=== PATIENT | female | born 1995 | race Caucasian/White ===

== ENCOUNTER 2016-10-23 10:17 | Outpatient (CLI) | payer OTHER ==
[~2016-10-23 10:17] MED LIST: BCPILLS PO
--- NOTE | 2016-10-23 10:31 | Progress Note ---
Progress Note Date of Service Oct 23, 2016. Progress Note Outpatient Note 21 F P1001 at 30 weeks with upper abdominal pain associated with low back pain. No history of labor or any bleeding or leakage of fluid. No urinary symptoms. FHT Cat 1. Has been constipated during . Cervix closed and thick. Will place on monitor and observe for signs of labor.
[2016-10-23] MEDS ORDERED: ACETAMINOPHEN 325 MG TAB PO STA (11:09)
[2016-10-23 11:46] LABS: URINE APPEARANCE CLEAR (CLEAR); URINE BILIRUBIN NEG (NEG); URINE COLOR YELLOW; URINE NITRITE NEG (NEG); URINE PH 7.5 (4.5-7.5); URINE SPECIFIC GRAVITY 1.011 (1.000-1.030); UROBILINOGEN NEG (NEG); ZZUR CULT IF INDIC CLEAN CATCH NO
[2016-10-23 11:47] LABS: MANUAL MICROSCOPIC REQUIRED? NO; REVIEW REQ? NO
--- NOTE | 2016-10-23 12:22 | OB/GYN Progress Note ---
VARIOUS EXCEPTIONALITIES TEACHER Progress Note Date of Service: Oct 23, 2016. Covering for Dr. Whelan Patient is reevaluated She feels well, no more pain No ctxs/ LOF/VB +FM She was upset at work when it started Tylenol one dose helped U/A: negative A: 21 yo at 30.6 wks with musculoskeletal pain, resolved No s/s of PTL FHR reassuring Plan d/c home and f/u in office Instructions were given when to call
== END 2016-10-23 12:50 | disposition home or self-care (01) ==
LOC: C.OPB 10:17 → C.LD 10:18 → C.OPB 12:50
PROVIDERS: ATTEND Obstetrics & Gynecology
DX: O99.89 Other specified diseases and conditions complicating pregnancy, childbirth and the puerperium (principal); M79.1 Myalgia; Z3A.30 30 weeks gestation of pregnancy

== ENCOUNTER 2016-12-11 22:49 | Outpatient (CLI) | payer OTHER ==
[~2016-12-11] VITALS: Ht 152.4 cm; Wt 74.1 kg
[2016-12-11 23:38] VITALS: Ht 152.4 cm; Wt 74.1 kg
--- NOTE | 2016-12-21 11:22 | EDITING REQUIRED CODING QUERY ---
DIAGNOSIS NEEDED To promote full compliance with coding requirements relating to patient care, physician participation is requested in all cases of pecan huller uncertainty. Please assist us with the question(s) below: Coding Question: The patient received care in labor and delivery on 12/11/16 as noted within the record. Please document the diagnosis that is being addressed by the medication/treatment. Provider Response: DIAGNOSIS: labor Thank you for your assistance, Jazmin Pelletier - Digital Marketing Analyst
== END 2016-12-11 23:45 | disposition home or self-care (01) ==
LOC: C.LD 22:49 → C.OPB 22:49
PROVIDERS: ATTEND Obstetrics & Gynecology
DX: O60.03 Preterm labor without delivery, third trimester (principal); Z3A.33 33 weeks gestation of pregnancy

== ENCOUNTER 2016-12-30 09:41 | Inpatient (IN) | payer OTHER ==
[~2016-12-30] VITALS: Ht 152.4 cm; Wt 77.3 kg
[2016-12-30] MEDS ORDERED: PRENTAB26 PO (10:39)
[2016-12-30 10:42] VITALS: Ht 152.4 cm; Wt 77.3 kg
[2016-12-30] MEDS ORDERED: LACTATED RINGER'S 1000ML 1,000 ML IV PRN (11:06)
[2016-12-30] MEDS ORDERED: MISOPROSTOLTAB 50 MCG TAB PO ONE (11:15)
--- NOTE | 2016-12-30 11:24 | HISTORY & PHYSICAL EXAMINATION ---
DATE OF ADMISSION: 12/30/2016 HISTORY OF PRESENT ILLNESS: The patient is a 21-year-old G2, P1, due date 12/26/2016 making her 40 weeks and 4 days gestation. The patient's has been unremarkable. She is here today for induction for post dates. LABS: Blood type B positive, antibody negative, rubella immune, GBS negative. PAST MEDICAL HISTORY: History of asthma. PAST SURGICAL HISTORY: None. ALLERGIES: No known drug allergies. SOCIAL HISTORY: Denies tobacco, drug or alcohol use. POSTDOCTORAL FELLOW HISTORY: The patient delivered a live infant male on 03/12/2014. Infant weighed 7 pounds 15 ounces. This was a vaginal delivery. PHYSICAL EXAMINATION: GENERAL: Well-developed, well-nourished white female in no acute distress. HEART: S1, S2, regular rhythm and rate. LUNGS: Clear to auscultation bilaterally. ABDOMEN: Gravid. heart rate is category 1. Bedside ultrasound shows cephalic presentation. PELVIC EXAMINATION: The patient is 1, 50%, -3 station. ASSESSMENT AND PLAN: A 21-year-old G2, P1 at 40 weeks and 3 days, here for labor induction. An unremarkable course. Bedside ultrasound cephalic presentation. Negative GBS. Plan is to admit patient and start labor induction.
[2016-12-30 11:42] LABS: HEMATOCRIT 34.2 % (37-47); MEAN CELL VOLUME 88.6 fL (80-100); MEAN CORPUSCULAR HEMOGLOBIN 31.1 pg (25-34); MEAN CORPUSCULAR HGB CONC 35.1 g/dl (32-36); MEAN PLATELET VOLUME 9.8 fL (7.4-10.4); PLATELET COUNT 212 K/uL (130-400); RED BLOOD COUNT 3.86 M/uL (4.2-5.4); WHITE BLOOD COUNT 12.95 K/uL (4.8-10.8)
[2016-12-30] MEDS: LACTATED RINGER'S 1000ML 1,000 ML IV SCH ×2 (12:45→20:43)
[2016-12-30] MEDS ORDERED: LACTATED RINGER'S 1000ML 500 ML IV PRN ×2 (16:03→20:30)
[2016-12-30] MEDS ORDERED: OXYTOCIN 30 UNITS/500ML NSS IV PRN (16:15)
[2016-12-30] MEDS ORDERED: BUPIVACAINE 0.25% 30 ML VIAL ONE (19:33)
[2016-12-30] MEDS ORDERED: FENTANYL 2MCG/ML ROPIV 1.25MG/ML 100ML BAG EPI ONE (19:34)
[2016-12-30] MEDS ORDERED: EpHEDrine SULFATE INJ 50 MG/ML AMP ONE (19:34)
[2016-12-30] MEDS ORDERED: FENTANYL CITRATE INJ 50 MCG/1 ML 2 ML VIAL ONE (19:35)
[2016-12-30] MEDS ORDERED: NALBUPHINE HCL INJ 10 MG/ML AMP IV PRN (20:30)
[2016-12-30] MEDS ORDERED: ONDANSETRON INJ 2 MG/ML 2 ML VIAL IV PRN (20:30)
[2016-12-30] MEDS ORDERED: NALOXONE HCL INJ 1 MG in SODIUM CHLORIDE 0.9% 1000ML 1,000 ML IV PRN (20:30)
[2016-12-30] MEDS ORDERED: NALOXONE HCL INJ 0.4 MG/1 ML VIAL/CARP IV PRN (20:30)
[2016-12-30] MEDS ORDERED: DiphenhydrAMINE HCL 50 MG/ML VIAL IV PRN (20:30)
[2016-12-30] MEDS ORDERED: EpHEDrine SULFATE INJ 50 MG/ML AMP IV PRN (20:30)
[2016-12-30] MEDS ORDERED: FENTANYL 2MCG/ML ROPIV 1.25MG/ML 100ML BAG EPI PRN (20:30)
[2016-12-31] VITALS (7 sets, daily range): BP systolic 107–118; BP diastolic 64–77; PULSE 69–83; TEMP 36.3–36.9; O2SAT 97–98
[2016-12-31] MEDS ORDERED: NURSING VERBAL MED ORDER ONE
[2016-12-31] MEDS ORDERED: CALCIUM CARBONATE 500 MG CHEWABLE ONE (00:04)
[2016-12-31] MEDS ORDERED: CALCIUM CARBONATE 500 MG CHEWABLE PO PRN (00:30)
[2016-12-31] MEDS ORDERED: OXYTOCIN 30 UNITS/500ML NSS IV PRN (02:30)
[2016-12-31] MEDS ORDERED: HYDROCORTISONE ACETATE 25 MG SUPP PR PRN (02:30)
[2016-12-31] MEDS ORDERED: SUPERCREAM 0.870 % 15GM JAR EXT PRN (02:30)
[2016-12-31] MEDS ORDERED: OXYCODONE/ACETAMINOPHEN 5-325 TAB PO PRN (02:30)
[2016-12-31] MEDS ORDERED: LANOLIN OINT EXT PRN ×2 (02:30)
[2016-12-31] MEDS ORDERED: ACETAMINOPHEN/CODEINE 300/30MG TAB PO PRN ×2 (02:30)
[2016-12-31] MEDS ORDERED: ACETAMINOPHEN 325 MG TAB PO PRN (02:30)
[2016-12-31] MEDS ORDERED: BENZOCAINE 20% AER SPR 82.5 GM CAN EXT PRN (02:30)
--- NOTE | 2016-12-31 03:07 | OPERATIVE REPORT ---
DATE OF OPERATION: 12/30/2016 PROCEDURE: Vaginal delivery. DESCRIPTION OF PROCEDURE: The patient delivered a live female in occiput anterior presentation. There was a tight nuchal cord which was clamped and cut. Once the cord was reduced, infant was delivered and placed on mother's abdomen. Cord gas and cord blood was obtained. Placenta was spontaneously delivered. Inspection of the perineum showed first-degree midline laceration with a right periurethral tear, which was repaired with 3-0 Vicryl. There was good hemostasis. Mother and baby are doing well in recovery. Estimated blood loss is 400 mL. All instruments are removed from the vagina and accounted for x2 including sponges and needles. Baby's weight is pending, Apgars 8 and 9. I attest to the content of the Intraoperative Record and any orders documented therein. Any exception s are noted below.
[2016-12-31] MEDS: PRENATAL VITAMIN TAB PO SCH (07:47)
[2016-12-31] MEDS: FERROUS SULFATE 325 MG TAB PO SCH (07:47)
[2016-12-31] MEDS: DOCUSATE SODIUM 100 MG CAP PO SCH ×2 (07:47→20:10)
[2016-12-31] MEDS: IBUPROFEN 600 MG TAB PO PRN ×2 (07:47→15:57)
--- NOTE | 2016-12-31 11:38 | OB/GYN Progress Note ---
ASSISTANT FOOD SERVICE DIRECTOR Progress Note Date of Service Dec 31, 2016. Subjective conversation w/ patient, physical exam Ambulation: ambulating normally Voiding: no voiding problems Passing Gas: Yes Diet Tolerance: Regular Diet Lochia: Moderate Pain: 2/10 Notes: Doing well, no concerns. Objective Vital Signs Date Time Temp Pulse Resp B/P (MAP) Pulse Ox O2 Delivery O2 Flow Rate FiO2 12/31/16 11:08 36.3 78 20 118/74 (89) 98 Room Air 12/31/16 08:07 36.6 76 20 113/68 (83) 98 Room Air 12/31/16 07:45 36.9 84 107/66 (80) Room Air 12/31/16 07:45 Room Air Physical Exam General Appearance: WELL-APPEARING Respiratory/Chest: chest non-tender, lungs clear Cardiovascular: regular rate, rhythm Abdomen: normal bowel sounds, soft Fundus: Firm Extremities: normal range of motion, non-tender, no calf tenderness Assessment and Plan Post- Continue Routine Care: PPD # 0. -Continue routine care -Anticipate d/c home tomorrow
[2017-01-01 07:31] LABS: HEMATOCRIT 32.7 % (37-47)
[2017-01-01] MEDS: PRENATAL VITAMIN TAB PO SCH (08:25)
[2017-01-01] MEDS: FERROUS SULFATE 325 MG TAB PO SCH (08:25)
[2017-01-01] MEDS: DOCUSATE SODIUM 100 MG CAP PO SCH (08:25)
[2017-01-01 09:00] VITALS: BP 118/76; PULSE 74; TEMP 36.6; O2SAT 97
[2017-01-01] MEDS: IBUPROFEN 600 MG TAB PO PRN (09:28)
--- NOTE | 2017-01-01 10:20 | OB/GYN Progress Note ---
SCHEDULE MANAGER Progress Note Date of Service: Jan 01, 2017. Patient is seen and examined. She feels well, no complaints. Likes to be discharged Ambulating without dizziness Voiding without difficulty Tolerating regular diet with out N&V Bleeding is minimal No fever/ chills/ CP/ SOB/ N&V/ Leg pain Bottle feeding without problems Date Time Temp Pulse Resp B/P (MAP) Pulse Ox O2 Delivery O2 Flow Rate FiO2 01/01/17 09:00 36.6 74 18 118/76 (90) 97 Room Air 01/01/17 09:00 97 Room Air 12/31/16 23:10 97 Room Air 12/31/16 23:10 36.5 69 18 115/70 (85) 97 Room Air 12/31/16 20:15 36.7 81 18 111/71 (84) Room Air 12/31/16 15:45 36.9 83 18 110/64 (79) Room Air 12/31/16 15:45 Room Air 12/31/16 12:00 36.8 82 18 116/77 (90) Room Air 12/31/16 11:08 36.3 78 20 118/74 (89) 98 Room Air PE: General: Alert, orientedx3, NAD Abd: soft, NT, fundus firm, below Umbilicus Perineum intact, Lochia rubra minimal Ext; NT, no edema AP: 21 yo s/p , ppd# 1 VSS Afebrile doing well Continue routine care All questions were answered D/C home per her request
--- NOTE | 2017-01-01 10:21 | Discharge Instructions ---
Discharge Instructions Date of Service Jan 01, 2017. Admission Reason for Admission: Induction Discharge Discharge Diagnosis / Problem: Discharge Goals Goal(s): Routine recovery after delivery Medications Continue Dispensed Medications: lansinoh Activity Recommendations Activity Limitations: as noted below Lifting Limitations: until after follow-up appointment Exercise/Sports Limitations: until after follow-up appointment May Resume Sexual Activity: after follow-up appointment Shower/Bathe: no limitations Driving or Machine Use: ACTIVITY RECOMMENDATIONS: * Gradual return to full activity over the next 2-3 weeks. * No lifting - nothing heavier than baby over the next 2-3 weeks. * Do not engage in vigorous exercise, sexual activity or sports until cleared by your physician. * Do not drive or operate any motorized equipment until cleared by your physician. * You may shower/bathe daily. BREAST CARE: If you are not breast feeding: * Wear a supportive bra 24 hours a day for one to two weeks. * Avoid stimulating your breasts and nipples as much as possible during the first few weeks after delivery. * When taking a shower, have the warm water hit your back, not breasts. * When your breasts feel full, apply ice packs. Usually three to four times a day helps ease the discomfort. * Take a mild pain medication (Tylenol/Motrin) when you are uncomfortable. If breast feeding: * Use breast milk to lubricate nipples. Lansinoh cream may be used for sore nipples. You do not need to remove cream prior to breast feeding. If using a different brand of cream, check the label for directions regarding removal of cream prior to nursing. * Wear a supportive bra. * If having problems with breasts or breast feeding, call a pci security consultant or your health care provider. EPISIOTOMY CARE: After delivery, if you have an episiotomy (stitches), the following steps will ease discomfort and aid healing. * For the first 24 hours after delivery, place ice packs next to your episiotomy to help reduce swelling. * After the first 24 hour-period, sitz baths, either portable or in the tub, are suggested. A shower with a shower arm sprayed over the episiotomy may be comforting. * Stacey care should be done after each voiding and bowel movement. Squirt warm water from a plastic bottle over the perineum (region of the body between the anus and urinary opening) and pat dry. * Use Dermoplast to ease discomfort. Shake container. [place] directly over the episiotomy. * Place a Tucks on a clean sanitary pad next to your episiotomy. OVER THE COUNTER MEDICATION: * For discomfort or pain, you may use Acetaminophen (Tylenol), Ibuprofen (Advil ), or Naproxen (Aleve) following the package directions. * For constipation you may use Colace following the package directions. SPECIAL CARE INSTRUCTIONS: When you are discharged from the hospital, it is important for you to follow the instructions listed below: * During the first week at home, you should be able to care for yourself and your baby. In addition, the usual light household activities are encouraged. * Limit your activities to the way you feel. Do not try to clean the house or move furniture. Be sensible. * If you actively engage in sports and have done so up until the time of your delivery, you may resume these activities as soon as you feel able. This may take up to one month or even longer. Use good judgment. * Continue to take your vitamins for at least six weeks after the of your baby. * Your diet need not be limited unless you were on a special diet before your delivery. Breast-feeding mothers need around 2500 calories per day and at least 64-80 ounces of fluid per day (8 to 10 glasses). * You should eat foods from the four major food groups. Crash diets or fad diets are to be avoided. Eating lean meats, fresh fruits and vegetables, low-fat dairy products, high fiber foods and a regular exercise program, will help you get back to your pre- weight without putting your health at risk. * Constipation is sometimes a problem after delivery. Take a mild laxative as needed. If breast feeding, Milk of Magnesia is acceptable to use. You may use a suppository or Fleets enema if no episiotomy. * A daily shower or tub bath is suggested. Be sure to thoroughly and gently dry the perineum. * A bloody vaginal discharge will usually continue until around four weeks post . A small amount of bleeding may continue for as long as six weeks. Vaginal discharge changes from the bright red bleeding after delivery to pink then brownish and finally yellowish-pink before becoming white and disappearing. * Bleeding may increase with activity. Your first period may come in 4-8 weeks. If you are breast feeding, your period may be delayed even longer. * [place] (sex) can begin whenever both you and your partner feel comfortable and do not have any form of genital infection. It is recommended that you wait until after your return appointment and discuss with your physician. If you have questions, please talk to your health care practitioner. A condom should be used to prevent infection and . * Foreplay, gentle intercourse and lubrication is very important the first several times to prevent pain. A water-based lubricant such as K-Y jelly or Astroglide may be used. * Tampons may be used six weeks after delivery. * Douching should be avoided for 6 weeks after delivery. * If you have RH negative blood and your baby is RH positive, you will receive RHOGAM by injection prior to discharge. The nurse will give you a card to keep with you that has the date and place that you received RHOGAM after delivery. * During your care, you had a Rubella screen done to check for the presence of rubella antibodies in your blood. If your test was negative, you will receive a Rubella vaccine prior to discharge. This vaccine may cause a fever, soreness at the injection site and flu-like symptoms. If these symptoms persist, notify your health care practitioner. is not advised for three months after a Rubella vaccine. There is a higher chance of having a baby with defects if conceived within three months of getting the vaccine. * If you were discharged 24 hours from delivery or before 48 hours: Visiting nurses will come to your home 48 hours after discharge to assess you and your baby. The visiting nurse will meet with you while you are in the hospital to arrange a time and get directions to your home. * Verbalizes understanding of car seat law as reviewed with patient nursing. * Car Seat hand-out given and reviewed with patient by nursing. * Shaken baby information reviewed with patient by nursing. Call you doctor if: * Heavy bleeding (saturating several pads an hour) or passing clots the size of your fist. * A fever >101 degrees F (38.3 degrees C) on two occasions four hours apart and/or chills. * Unusual pain in the pelvic or vaginal areas. * "Baby Blues" lasting longer than two weeks. If you have any questions or concerns, call your health care practitioner at . FOLLOW-UP VISIT: * Please call the office at to schedule a 6 week examination. It is important you keep this appointment. * It is important for you to make arrangements for either yearly or twice yearly check-ups thereafter. . Current Hospital Diet Patient's current hospital diet: Regular OB Diet Discharge Diet Recommended Diet: Regular Diet Pending Studies Studies pending at discharge: no Medical Emergencies . Who to Call and When: Medical Emergencies: If at any time you feel your situation is an emergency, please call 911 immediately. . Non-Emergent Contact Non-Emergency issues call your: Surgeon Call Non-Emergent contact if: temperature is above 100.5, your pain is not controlled . . "Provider Documentation" section prepared by Brigette Wilson. . VTE Core Measure Inpt VTE Proph given/why not?: Treatment not indicated
[2017-01-01 12:15] VITALS: BP_DIAS 76; PULSE 74; TEMP 36.6
[2017-01-01] MEDS ORDERED: BISACODYL 5 MG TABEC PO SCH (20:00)
[2017-01-02] MEDS ORDERED: BISACODYL 10 MG SUPP PR PRN (07:00)
== END 2017-01-01 12:15 | disposition home or self-care (01) | DRG 775 ==
LOC: C.LD 09:41 → C.OBG 12-31 06:26
PROVIDERS: ADMIT Obstetrics & Gynecology; ATTEND Obstetrics & Gynecology
PROC: 10907ZC Drainage of Amniotic Fluid, Therapeutic from Products of Conception, Via Natural or Artificial Opening (ICD-10-PCS; principal; 2016-12-31)
PROC: 10E0XZZ Delivery of Products of Conception, External Approach (ICD-10-PCS; principal; 2016-12-31)
PROC: 0HQ9XZZ Repair Perineum Skin, External Approach (ICD-10-PCS; principal; 2016-12-31)
PROC: 3E033VJ Introduction of Other Hormone into Peripheral Vein, Percutaneous Approach (ICD-10-PCS; principal; 2016-12-31)
PROC: 0UQMXZZ Repair Vulva, External Approach (ICD-10-PCS; principal; 2016-12-31)
DX: O48.0 Post-term pregnancy (principal); Z3A.40 40 weeks gestation of pregnancy; Z37.0 Single live birth; O99.52 Diseases of the respiratory system complicating childbirth; J45.909 Unspecified asthma, uncomplicated; O70.0 First degree perineal laceration during delivery; O69.1XX0 Labor and delivery complicated by cord around neck, with compression, not applicable or unspecified; O71.82 Other specified trauma to perineum and vulva

== ENCOUNTER 2023-07-15 07:48 | Inpatient (IN) ==
[2023-07-15] MEDS ORDERED: LIDOCAINE 1% LOCAL 20 ML VIAL INFIL PRN (09:14)
--- NOTE | 2023-07-15 09:28 | History & Physical Report ---
Date of Service July 15, 2023 Assessment & Plan (1) : Plan: Induction of labor (2) Post-dates : Plan: Induction of labor Admission and Anticipated Discharge Date Admission Date: July 15, 2023 History of Present Illness Chief Complaint: induction of labor Primary Care Provider: Milla Hughes DO 27 F [id number] at 40.3 weeks admitted of IOL for post-dates . GBS is negative. Allergies Allergy/AdvReac Type Severity Reaction Status Date / Time No Known Allergies Allergy Unverified 07/15/23 08:38 Home Medications Medication Instructions Recorded Confirmed Type omeprazole magnesium 20 mg 20 mg PO DAILY 07/15/23 07/15/23 History tablet,delayed release (Prilosec OTC) vits no.124-ferrous fum 1 tab PO DAILY 07/15/23 07/15/23 History 27 mg iron-folic acid 800 mcg tablet ( Vitamin) Patient History Medical History Vaginal delivery Migraine Surgical History No significant past surgical history Social History Smoking Status: Former smoker Hx Alcohol Use: No Hx Substance Use: No Preferred Language: Armenian Beliefs That Will Affect Care: None marital status: Current Living Situation: Family current occupational status: employed Other Information That Helps Us Care for You: No Feels Safe at Home: Yes Safety Concerns: Feels Safe At This Time Assistive Devices: None 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 Review of Systems All systems reviewed & are unremarkable except as noted in HPI & below Physical Exam Constitutional: WD/WN, vitals as above Eyes: PERRL, conjunctivae normal, anicteric sclerae Respiratory: normal respiratory effort, lungs clear to auscultation Cardiovascular: RRR, no murmur, no edema Musculoskeletal: Extremities: extremities normal to inspection Neurologic: patellar DTR's 2+ bilat, sensation intact Psychiatric: A+Ox3, euthymic affect Genitourinary: no vaginal lesions, no adnexal mass Manual OB Exam: + cervical dilation fingertip, + cervical effacement 50% and + station high OB Exam Monitor Tracing: + external FHT monitor used, + external uterine monitor used, + category I and + normal FHT variability EFW 8 lbs. will start with Cervidil to ripen cervix Results & Data Vital Signs (Past 12 Hours) Vital Signs Temp Pulse Resp BP 07/15/23 07:58 91 H 135/74 07/15/23 07:58 36.8 C 18 Code Status & VTE Plan VTE Prophylaxis Plan VTE Prophylaxis will be ordered: No Monitoring External Monitor Cat 1 (1) Weeks of gestation: 40 weeks Qualified Code(s): Z3A.40 - 40 weeks gestation of (2) Post-dates Post-term type: 40-42 weeks gestation Qualified Code(s): O48.0 - Post-term
[2023-07-15 09:54] LABS: Hemoglobin 12.5 g/dl (12.0-16.0); Mean Corpuscular Hemoglobin 28.7 pg (25.0-34.0); Mean Corpuscular Hgb Conc 34.7 g/dL (32.0-36.0); Mean Corpuscular Volume 82.8 fL (80.0-100.0); Mean Platelet Volume 10.6 fL (9.4-12.4); Platelet Count 223 K/uL (130-400); RDW Coefficient of Variation 13.8 % (11.5-14.5); RDW Standard Deviation 41.6 fL (36.4-46.3); Red Blood Count 4.35 M/uL (4.20-5.40); White Blood Count 11.02 K/ul (4.8-10.8)
[2023-07-15] MEDS: DINOPROSTONE 10 MG INSERT PV ONE (10:24)
--- NOTE | 2023-07-15 10:41 | Labor Progress Brief Note ---
Date of Service July 15, 2023 Assessment & Plan Admission and Anticipated Discharge Date Admission Date: July 15, 2023 Physical Exam Genitourinary: OB Exam Monitor Tracing: + external FHT monitor used, + external uterine monitor used, + category I and + normal FHT variability Cervidil 10 mg placed vaginally Results & Data Vital Signs (Past 12 Hours) Vital Signs Temp Pulse Resp BP 07/15/23 07:58 91 H 135/74 07/15/23 07:58 36.8 C 18
[2023-07-15] MEDS: LACTATED RINGER'S 1,000 ML IV PRN (21:58)
--- NOTE | 2023-07-15 21:58 | Labor Progress Brief Note ---
Date of Service July 15, 2023 Assessment & Plan Admission and Anticipated Discharge Date Admission Date: July 15, 2023 Physical Exam Genitourinary: Manual OB Exam: + cervical dilation 4 cm and 5 cm, + cervical effacement 80%, + station -2 and + amniotic fluid clear OB Exam Monitor Tracing: + external FHT monitor used, + external uterine monitor used, + category I and + normal FHT variability Cervidil pulled out after SROM Results & Data Vital Signs (Past 12 Hours) Vital Signs Temp Pulse Resp BP 07/15/23 21:48 107 H 129/79 07/15/23 21:47 18 07/15/23 21:47 36.6 C 18 07/15/23 19:21 36.8 C 83 18 121/74 07/15/23 16:18 36.9 C 90 18 120/57 L 07/15/23 12:20 36.8 C 88 20 115/68
--- NOTE | 2023-07-15 22:23 | Anesthesiology Consultation ---
Date of Service July 15, 2023 Assessment & Plan Chart Review Chart Review: Patient NOT seen in Pre Admission Testing and Acceptable Risk for Labor Epidural Consults Requested none ASA ASA2 Proposed Anesthesia Anesthesia Type: Labor Epidural Risk / Benefits Reviewed With: PT / POA / Parent / Guardian, Accepts Plan and Informed Consent Obtained History Height/Weight Height: 5 ft Weight: 81.647 kg Allergies Allergy/AdvReac Type Severity Reaction Status Date / Time No Known Allergies Allergy Unverified 07/15/23 08:38 Medications Home Medications Medication Instructions Recorded Confirmed Last Taken omeprazole magnesium 20 mg 20 mg PO DAILY 07/15/23 07/15/23 Unknown tablet,delayed release (Prilosec OTC) vits no.124-ferrous fum 1 tab PO DAILY 07/15/23 07/15/23 Unknown 27 mg iron-folic acid 800 mcg tablet ( Vitamin) Active Medications Generic Name Dose Route Start Last Admin Trade Name Freq PRN Reason Stop Dose Admin Lactated Ringer's 1,000 mls @ 125 mls/hr 07/15/23 09:14 07/15/23 21:58 Lr IV 07/17/23 09:13 999 mls/hr .Q8H PRN Administration L&D Protocol Protocol NPO Date Last Intake of Fluids: 07/15/23 Time Last Intake of Fluids: 22:00 Date Last Intake of Solids: 07/15/23 Time Last Intake of Solids: 17:00 Past Medical History Medical History Vaginal delivery Migraine Exercise / Class Metabolic Activity II 4-5 Yardwork/Stairs/Walk up hill Past Surgical History Surgical History No significant past surgical history Past Anesthesia History No Hx of Anesthesia Complications and No Family Hx of Anesthesia Complications History of PONV No Hx of PONV and No Hx of Motion Sickness Social History Smoking Status: Former smoker Hx Alcohol Use: No Hx Substance Use: No substance use type: does not use Review of Systems ROS Unobtainable: All systems reviewed & are unremarkable except as noted in HPI & below Physical Exam Vital Signs Last Vital Signs Temp 36.6 C 07/15/23 21:47 Pulse 100 H 07/15/23 22:19 Resp 18 07/15/23 21:47 BP 129/79 07/15/23 21:48 Pulse Ox 97 07/15/23 22:19 ENMT Mouth: no TMJ abnormality Thyromental Distance: > or= 3.5 Finger Breadths Mallampati Class: II Neck normal visual inspection and trachea midline; neck extension not limited Respiratory normal respiratory effort Auscultation: lungs clear to auscultation bilaterally Cardiovascular Rate/Rhythm: regular rate and regular rhythm Heart Sounds: no murmur Musculoskeletal Spine: normal cervical ROM Extremities: full ROM of extremities Neurologic moves all extremities Psychiatric Orientation: alert and oriented x 3 Testing Laboratory Results 07/15/23 09:41 Blood Type B Positive 07/15/23 09:41 Antibody Screen NEGATIVE 07/15/23 09:41
--- OUTSIDE RECORDS SUMMARY | 2023-07-15 22:34 | External Medical Summary | Summary of Care ---
Author Name Unknown Organization [facility] Address [address] [place] [place] [address] Phone [phone] Care Team Providers Care Glassware Selector Name Role Phone JensMilla elizabeth Primary Care Provider [phone] Reason for Visit * Reason Comments Return Visit Encounter Details Date Type Department Care Team (Late st Contact Info) Description 07/09/2023 9:45 AM EST Office Visit Gynecology/Obstetric [facility] [address] [facility] [place] [address] Emily Gaines, QUINN, CN [address] [facility] [place] [address] Normal intrauterine , antepartum*; History of gestational diabetes in prior , currently Allergies No known active allergiesdocumented as of this encounter (statuses as of 07/09/2023) Medications Medication Sig Dispensed Refills Start Date End Date Status 19 29-1 MG Oral Tablet Chewable Take by mouth. 0 Active Omeprazole 20 MG Oral Capsule Delayed Release (PriLOSEC) Take 1 Capsule by mouth in the morning. 0 Active documented as of this encounter (statuses as of 07/09/2023) Active Problems Problem Noted Date Diagnosed Date Normal 11/26/2022 History of gestational diabe ryan in prior , currently 11/26/2022 Overview: Early GTT normal Estimated Date of Delivery Comme nts Yes 07/12/2023 Based on Ultraso und documented as of this encounter (statuses as of 07/09/2023) Resolved Problems Problem Noted Date Diagnosed Date Resolved Date Abnormal glucose tolerance i n mother complicating 09/25/2016 12/31/2016 Overview: Elevated glucola. 3hr GTT ordered- WNL Other normal , not first 04/29/2016 12/31/2016 Overview: Patient declines flu vaccine. 06/03/2016 Marley Silvestre, BRUNILDA Problem Action Taken Date entered Entered by Date resolved Nutrition Discussed WIC referral, Declined 07/29/2016 Marley Silvestre, BRUNILDA 07/29/16 Problem Action Taken Date entered Entered by Date resolved Heartburn Eat smaller meals more frequently Tums and Maalox may be helpful 09/23/2016 Kay Camejo RN 09/23/2016 Problem Action Taken Date entered Entered by Date resolved Current needs or questions Patient denies having any current needs or questions 10/07/2016 Karen Child RN 10/07/16 Problem Action Taken Date entered Entered by Date resolved Current needs or questions Patient denies having any current needs or questions 11/04/2016 Kay Camejo RN 11/04/2016 Problem Action Taken Date entered Entered by Date resolved Current needs or questions Patient denies having any current needs or questions 11/18/2016 Marley Silvestre RN 11/18/16 Problem Action Taken Date entered Entered by Date resolved Current needs or questions Patient denies having any current needs or questions 12/09/2016 Karen Child RN 12/09/16 Problem Action Taken Date entered Entered by Date resolved Current needs or questions Patient denies having any current needs or questions 12/16/2016 Karen Child RN 12/16/16 Problem Action Taken Date entered Entered by Date resolved Current needs or questions Patient denies having any current needs or questions 12/23/2016 Kay Camejo RN 12/23/2016 Problem Action Taken Date entered Entered by Date resolved Current needs or questions Patient denies having any current needs or questions 12/28/2016 Karen Child RN 12/28/16 History of gestational diabetes 04/29/2016 12/31/2016 Overview: Early glucola elevated, 3hr GTT ordered-- WNL Gestational diabetes 01/24/2014 014 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 Repeat culture obtained at NOB visit-negative 08/14/13 Repeat chlamydia at 36wks-negative documented as of this encounter (statuses as of 07/09/2023) Immunizations Name Administration Dates Next Due PPD 02/11/2016 TDAP (age 10 and older)(Boostrix) 02/11/2016 documented as of this encounter Social History Tobacco Use Types Packs/Day Years Used Date Smoking Tobacco: Former Cigarettes Q uit: 04/04/2016 Smokeless Tobacco: Never Alcohol Use Standard Drinks/Week Comments Not Currently 0 (1 standard drink = 0.6 oz pur e alcohol) 1 beer prior to +UPT PHQ-2 Answer Date Recorded PHQ-2 Score 0 04/05/2020 Hunger Vital Sign Answer Date Recorded Within the past 12 months, y ou worried that your food would run out before you got the money to buy more. Never true 11/27/19 23 Within the past 12 months, t he food you bought just didn't last and you didn't have money to get more. Never true 11/26/2022 [place] Depression Scale Answer Date Recorded [place] Depression Scale Total 0 06/04/2023 The thought of harming myself has occurred to me . Never 06/04/2023 Estimated Date of Delivery Comme nts Yes 07/12/2023 Based on Ultraso und Sex and Gender Information Value Date Recorded Sex Assigned at Female 11/26/2022 1:37 PM EDT Gender Identity Female 11/26/2022 1:37 PM EDT Sexual Orientation Straight 11/26/2022 1: 37 PM EDT Job Start Date Occupation Industry Not on file Not on file Not on file documented as of this encounter Last Filed Vital Signs Vital Sign Reading Time Taken Comments Blood Pressure 118/66 07/09/2023 9:50 AM EST Pulse - - Temperature - - Respiratory Rate - - Oxygen Saturation - - Inhaled Oxygen Concentration - - Weight 81.6 kg (180 lb) 07/09/2023 9:50 AM EST Height - - Body Mass Index 35.15 07/02/2023 8:37 AM EST documented in this encounter Progress Notes * Emily Gaines DNP, CNM - 07/09/2023 10:00 AM EST Jayshree Flores is a 27 year old female here for her routine OB appointment at 39w4d Her Estimated Date of Delivery: 07/12/23 REVIEW OF SYSTEMS: She affirms movement. Denies vaginal bleeding, LOF, contractions, N/V, headaches IOL scheduled for 07/15/23 Bryan Chowdary but no regular contractions. Plans vasectomy pp. Formula feeding "its not for me." PHYSICAL EXAM: Filed Vitals: 07/09/23 0950 BP: 118/66 Weight: 81.6 kg (180 lb) ASSESSMENT/PLAN: (Z34.90) Normal (primary encounter diagnosis) Plan: Supervision of - recommended flu vaccine - patient declines today -Reviewed abor precautions, kick counts, loss of fluid, vaginal bleeding, round ligament pain, and encouraged hydration. - IOL on 07/15/23 Emily Gaines DNP, CNM * Neda Garza LPN - 07/09/2023 9:51 AM EST 39w4d Denies vaginal bleeding/rom + movement No new concerns documented in this encounter Plan of Treatment Upcoming Encounters Date Type Department Care Team (Late st Contact Info) Description 08/26/2023 10:30 AM EDT [facility] [address] [place] [address] Backer, JAHAIRA Carrasco [address] [place] [address] Health Maintenance Due Date Last Done Comments Hepatitis B (1 of 3 - 19+ 3-dose series) 2013 Depression Screening 04/05/2021 04/05/2020 COVID-19 Vaccine (1 - 2022-24 season) 2023 Influenza Vaccine (FLU shot) (#1) 2023 Pap Smear 08/18/2025 08/18/2022, 11/21, 04/29/2016, Additional history exists DTaP,Tdap,and Td Vaccines (2 - Td or Tdap) 02/10/2026 02/11/2016 GARDASIL-HPV IMMUNIZATION SERIES Aged Out No longer eligible based on patient's age to complete this topic MENINGOCOCCAL (MENACTRA/MENVEO) Aged Out No longer eligible based on patient's age to complete this topic Pneumococcal Vaccine: Pediatrics (0 to 5 Years) and At-Risk Patients (6 to 64 Years) Aged Out No longer eligible based on patient's age to complete this topic documented as of this encounter Medical Devices Not on filedocumented as of this encounter Visit Diagnoses Diagnosis Normal intrauterine , antepartum- Primary History of gestational diabetes in prior , currently with other poor obstetric history documented in this encounter Care Teams Glassware Selector Relationship Specialty Start Date End Date Milla Hughes DO [address] [place] [address] PCP - General Family Medicine 02/25/11 documented as of this encounter
--- OUTSIDE RECORDS SUMMARY | 2023-07-15 22:35 | External Medical Summary | Summary of Care ---
Author Name Unknown Organization [facility] Address [address] [place] [address] Phone [phone] Care Team Providers Care Field Trainer Name Role Phone Myayeny Milla Mannie DO Primary Care Provider [phone] Reason for Visit * Reason Comments Return Visit Encounter Details Date Type Department Care Team (Late st Contact Info) Description 07/02/2023 8:45 AM EST Office Visit Gynecology/Obstetric s [facility] [address] [place] [address] Jadyn Vanegas CRNP [address] [place] [address] Normal in third trimester*; History of gestational diabetes in prior , currently Allergies No known active allergiesdocumented as of this encounter (statuses as of 07/02/2023) Medications Medication Sig Dispensed Refills Start Date End Date Status 19 29-1 MG Oral Tablet Chewable Take by mouth. 0 Active Omeprazole 20 MG Oral Capsule Delayed Release (PriLOSEC) Take 1 Capsule by mouth in the morning. 0 Active documented as of this encounter (statuses as of 07/02/2023) Active Problems Problem Noted Date Diagnosed Date Normal 11/26/2022 History of gestational diabe ryan in prior , currently 11/26/2022 Overview: Early GTT normal Estimated Date of Delivery Comme nts Yes 07/12/2023 Based on Ultraso und documented as of this encounter (statuses as of 07/02/2023) Resolved Problems Problem Noted Date Diagnosed Date Resolved Date Abnormal glucose tolerance i n mother complicating 09/25/2016 12/31/2016 Overview: Elevated glucola. 3hr GTT ordered- WNL Other normal , not first 04/29/2016 12/31/2016 Overview: Patient declines flu vaccine. 06/03/2016 Marley Silvestre RN Problem Action Taken Date entered Entered by [...] as of this encounter (statuses as of 07/02/2023) Immunizations Name Administration Dates Next Due PPD [...] money to get more. Never true 11/26/2022 [place] Depression Scale Answer Date Recorded [place] Depression Scale Total 0 06/04/2023 The thought [...] Sign Reading Time Taken Comments Blood Pressure 124/78 07/02/2023 8:37 AM EST Pulse - - Temperature - - Respiratory Rate - - Oxygen Saturation - - Inhaled Oxygen Concentration - - Weight 80.7 kg (178 lb) 07/02/2023 8:37 AM EST Height 152.4 cm (5') 07/02/2023 8:37 AM EST Body Mass Index 34.76 07/02/2023 8:37 AM EST documented in this encounter Progress Notes * Jadyn Vanegas CRNP - 07/02/2023 9:11 AM EST 38w4d Uncomfortable, not sleeping well. Ready to be done being . Baby is active. Some BH contractions, no bleeding. Asking for cervical check. Agricultural Extension Specialist Documentation Provider requested planting supervisor. Name of planting supervisor: JAHAIRA Sosa * Suellen Fowler LPN - 07/02/2023 8:37 AM EST 38w4d Would like cervix checked documented in this encounter Plan of Treatment Upcoming Encounters Date Type Department Care Team (Late st Contact Info) Description 07/09/2023 9:45 AM EST Office Visit Gynecology/Obstetrics [facility] [address] [facility] [place] [address] Emily Gaines, DNP, CNM [address] [place] [address] Health Maintenance Due Date Last Done Comments Hepatitis B (1 of 3 - 3-dose series) 1994 COVID-19 Vaccine (#1) 04/12/1995 Depression Screening 04/05/2021 04/05/2020 Influenza Vaccine (FLU shot) (#1) 2023 Pap [...] of this encounter Visit Diagnoses Diagnosis Normal in third trimester- Primary History of gestational diabetes in prior , currently with other poor obstetric history documented in this encounter Care Teams Field Trainer Relationship Specialty Start Date End Date Milla Hughes DO [address] [place] [address] PCP - General Family Medicine 02/25/11 documented as of this encounter
--- OUTSIDE RECORDS SUMMARY | 2023-07-15 22:35 | External Medical Summary | Summary of Care ---
Author Name Unknown Organization [facility] Address [address] [facility] [place] [address] Phone [phone] Care Team Providers Care Public Health Name Role Phone JensMilla elizabeth Primary Care Provider [phone] Encounter Details Date Type Department Care Team (Late st Contact Info) Description 05/25/2023 Telephone Gynecology/Obstetrics [facility] [address] [place] [address] Ruben Swenson MD [address] [place] [address] Allergies No known active allergiesdocumented as of this encounter (statuses as of 05/25/2023) Medications Medication Sig Dispensed Refills Start Date End Date Status 19 29-1 MG Oral Tablet Chewable Take by mouth. 0 Activ e documented as of this encounter (statuses as of 05/25/2023) Active Problems Problem Noted Date Diagnosed Date Normal 11/26/2022 History of gestational diabe ryan in prior , currently 11/26/2022 Overview: Early GTT normal Estimated Date of Delivery Comme nts Yes 07/12/2023 Based on Ultraso und documented as of this encounter (statuses as of 05/25/2023) Resolved Problems Problem Noted Date Diagnosed Date [...] as of this encounter (statuses as of 05/25/2023) Immunizations Name Administration Dates Next Due PPD [...] money to get more. Never true 11/26/2022 [place] Depression Scale Answer Date Recorded [place] Depression Scale Total 3 04/22/2023 The thought of harming myself has occurred to me . Never 04/22/2023 Estimated Date of Delivery Comme nts Yes 07/12/2023 Based on Ultraso und Sex and Gender Information Value Date Recorded Sex Assigned at Female 11/26/2022 1:37 PM EDT Gender Identity Female 11/26/2022 1:37 PM EDT Sexual Orientation Straight 11/26/2022 1: 37 PM EDT Job Start Date Occupation Industry Not on file Not on file Not on file documented as of this encounter Miscellaneous Notes * Telephone Encounter - Elvia Feldman RN - 05/25/2023 11:28 AM EST Patient calling in. States that she has been voting that last 3 days. Today, feeling a little better, no vomiting so far,keeping water down. Concerned that the vomiting is caused by her acid reflux, she was advised last OV to try Prilosec, but she wanted to ensure she can take this. Advised that she can try the Prilosec as long as she is not vomiting/feeling okay today. Advised to push fluids, small sips, try Gatorade mixed with water. Advised ER precautions for dehydration. Advised that she call back with any changes. documented in this encounter Plan of Treatment Upcoming Encounters Date Type Department Care Team (Late st Contact Info) Description 06/04/2023 9:15 AM EST Office Visit Gynecology/Obstetrics [facility] [address] [place] [address] Phyllis Silva PA-C [address] [place] [address] Health Maintenance Due Date Last Done Comments [...] Not on filedocumented as of this encounter Care Teams Public Health Relationship Specialty Start Date End Date Milla Hughes DO [address] [facility] [place] [place] [address] PCP - General Family Medicine 02/25/11 documented as of this encounter
--- OUTSIDE RECORDS SUMMARY | 2023-07-15 22:35 | External Medical Summary | Summary of Care ---
Author Name Unknown Organization [facility] Address [address] [place] [address] Phone [phone] Care Team Providers Care Silk Screen Printer Machine Name Role Phone JensMilla elizabeth Mannie COWART Primary Care Provider [phone] Reason for Visit * Reason Comments Return Visit Encounter Details Date Type Department Care Team (Late st Contact Info) Description 05/05/2023 9:15 AM EST Office Visit Gynecology/Obstetric s [facility] [address] [place] [address] Phyllis Silva PA-C [address] [place] [address] Normal in third trimester*; History of gestational diabetes in prior , currently Allergies No known active allergiesdocumented as of this encounter (statuses as of 05/05/2023) Medications Medication Sig Dispensed Refills Start Date End Date Status 19 29-1 MG Oral Tablet Chewable Take by mouth. 0 Activ e documented as of this encounter (statuses as of 05/05/2023) Active Problems Problem Noted Date Diagnosed Date Normal 11/26/2022 History of gestational diabe ryan in prior , currently 11/26/2022 Overview: Early GTT normal Estimated Date of Delivery Comme nts Yes 07/12/2023 Based on Ultraso und documented as of this encounter (statuses as of 05/05/2023) Resolved Problems Problem Noted Date Diagnosed Date [...] as of this encounter (statuses as of 05/05/2023) Immunizations Name Administration Dates Next Due PPD 02/11/2016 TDAP (age 10 and older)(Boostrix) 02/11/2016 documented as of this encounter Social History Tobacco Use Types Packs/Day Years Used Date Smoking Tobacco: Former Cigarettes Q uit: 04/04/2016 Smokeless Tobacco: Never Tobacco Cessation:Counseling Given: Not Answered Alcohol Use Standard Drinks/Week Comments Not Currently [...] money to get more. Never true 11/26/2022 [place] Depression Scale Answer Date Recorded [place] Depression Scale Total 3 04/22/2023 The thought [...] Sign Reading Time Taken Comments Blood Pressure 106/64 05/05/2023 8:58 AM EST Pulse 99 05/05/2023 8:58 AM EST Temperature - - Respiratory Rate - - Oxygen Saturation 99% 05/05/2023 8:58 AM EST Inhaled Oxygen Concentration - - Weight 75.4 kg (166 lb 3.2 oz) 05/05/2023 8:58 A M EST Height 152.4 cm (5') 05/05/2023 8:58 AM EST Body Mass Index 32.46 05/05/2023 8:58 AM EST documented in this encounter Progress Notes * Phyllis Silva PA-C - 05/05/2023 9:06 AM EST 30w2d First time seeing patient. Denies bleeding, leaking, contractions. Pos FM. Passed 3 hour gtt. Did have to come back for fasting level d/t lab error. Wears apple watch has noticed with sitting at home watching TV HR increase to about 120's at times.She is completely asymptomatic during these times, only knows it elevated as she can see watch blinking. Denies CP, SOB at rest. HR 97- 99, pulse ox 99%. It did increase with talking. She is under caffeine today, has [employer] coffee. No cardiac history. Heart: RR. Lungs: clear. Recent labs showed Hgb 11.9, normal TSH. Drinking 3 tumblers of water a day. Advised push fluids 120 ounces a day, avoidcaffeine. Any chest pain, SOB, palpations or presyncope/syncope go to ED. RTC in 2 weeks Phyllis Silva PA-C documented in this encounter Nursing Notes * Elvia Feldman RN - 05/05/2023 8:59 AM EST Patient here for KARLA 30w2d No concerns documented in this encounter Plan of Treatment Upcoming Encounters Date Type Department Care Team (Late st Contact Info) Description 05/20/2023 10:45 AM EST Office Visit Gynecology/Obstetrics [facility] [address] [place] [address] Backer, JAHAIRA Carrasco [address] [place] [address] Health Maintenance Due Date Last Done Comments [...] history documented in this encounter Care Teams Silk Screen Printer Machine Relationship Specialty Start Date End Date Milla Hughes DO [address] [facility] [place] [address] PCP - General Family Medicine 02/25/11 documented as of this encounter
--- OUTSIDE RECORDS SUMMARY | 2023-07-15 22:35 | External Medical Summary | Summary of Care ---
Author Name Unknown Organization [facility] Address [address] [facility] [address] Phone [phone] Care Team Providers Care Clinical Trials Systems Administrator Name Role Phone JensMilla elizabeth Mannie COWART Primary Care Provider [phone] Reason for Visit * Reason Comments Outpatient Testing Encounter Details Date Type Department Care Team (Late st Contact Info) Description 04/27/2023 8:40 AM EST Laboratory Laboratory, [facility] [address] [place] [address] [facility] [address] [place] [address] Abnormal glucose tolerance in mother complicating Allergies No known active allergiesdocumented as of this encounter (statuses as of 04/27/2023) Medications Medication Sig Dispensed Refills Start Date End Date Status 19 29-1 MG Oral Tablet Chewable Take by mouth. 0 Activ e documented as of this encounter (statuses as of 04/27/2023) Active Problems Problem Noted Date Diagnosed Date Normal 11/26/2022 History of gestational diabe ryan in prior , currently 11/26/2022 Overview: Early GTT normal Estimated Date of Delivery Comme nts Yes 07/12/2023 Based on Ultraso und documented as of this encounter (statuses as of 04/27/2023) Resolved Problems Problem Noted Date Diagnosed Date [...] as of this encounter (statuses as of 04/27/2023) Immunizations Name Administration Dates Next Due PPD [...] money to get more. Never true 11/26/2022 [place] Depression Scale Answer Date Recorded [place] Depression Scale Total 3 04/22/2023 The thought [...] on file documented as of this encounter Plan of Treatment Upcoming Encounters Date Type Department Care Team (Late st Contact Info) Description 05/05/2023 9:15 AM EST Office Visit Gynecology/Obstetrics [facility] [address] [place] [address] Phyllis Silva PA-C [address] [place] [address] Pending Results Name Type Priority Associated Diagnoses Date /Time GLUCOSE, FASTING PLASMA Lab Routine Abnormal glucose tolerance in mother complicating 04/27/2023 8:29 AM EST Health Maintenance Due Date Last Done Comments [...] as of this encounter Visit Diagnoses Diagnosis Abnormal glucose tolerance in mother complicating Abnormal maternal glucose tolerance, complicating , childbirth, or the puerperium, unspecified as to episode of care documented in this encounter Care Teams Clinical Trials Systems Administrator Relationship Specialty Start Date End Date Milla Hughes DO [address] [place] [address] PCP - General Family Medicine 02/25/11 documented as of this encounter
--- OUTSIDE RECORDS SUMMARY | 2023-07-15 22:35 | External Medical Summary | Summary of Care ---
Author Name Unknown Organization [facility] Address [address] [address] Phone [phone] Care Team Providers Care General Assembler Name Role Phone JensMilla elizabeth Mannie COWART Primary Care Provider [phone] Reason for Visit * Reason Comments Return Visit Encounter Details Date Type Department Care Team (Late st Contact Info) Description 06/25/2023 8:45 AM EST Office Visit Gynecology/Obstetric [facility] [address] [facility] [place] [address] Diane Santos MD [address] [place] [phone] 37 weeks gestation of *; Normal in third trimester; History of gestational diabetes in prior , currently Allergies No known active allergiesdocumented as of this encounter (statuses as of 06/25/2023) Medications Medication Sig Dispensed Refills Start Date End Date Status 29-1 MG Oral Tablet Chewable Take by mouth. 0 Active Omeprazole 20 MG Oral Capsule Delayed Release (PriLOSEC) Take 1 Capsule by mouth in the morning. 0 Active documented as of this encounter (statuses as of 06/25/2023) Active Problems Problem Noted Date Diagnosed Date Normal 11/26/2022 History of gestational diabe ryan in prior , currently 11/26/2022 Overview: Early GTT normal Estimated Date of Delivery Comme nts Yes 07/12/2023 Based on Ultraso und documented as of this encounter (statuses as of 06/25/2023) Resolved Problems Problem Noted Date Diagnosed Date Resolved Date Abnormal glucose tolerance i n mother complicating 09/25/2016 12/31/2016 Overview: Elevated glucola. 3hr GTT ordered- WNL Other normal , not first 04/29/2016 12/31/2016 Overview: Patient declines flu vaccine. 06/03/2016 Marley Silvestre RN Problem Action Taken Date entered Entered by Date resolved Nutrition Discussed WIC referral, Declined 07/29/2016 Marley Silvestre RN 07/29/16 Problem Action Taken Date entered Entered [...] as of this encounter (statuses as of 06/25/2023) Immunizations Name Administration Dates Next Due PPD [...] money to get more. Never true 11/26/2022 [place] Depression Scale Answer Date Recorded [place] Depression Scale Total 0 06/04/2023 The thought [...] Sign Reading Time Taken Comments Blood Pressure 128/74 06/25/2023 8:28 AM EST Pulse - - Temperature - - Respiratory Rate - - Oxygen Saturation - - Inhaled Oxygen Concentration - - Weight 81.6 kg (180 lb) 06/25/2023 8:28 AM EST Height 152.4 cm (5') 06/25/2023 8:28 AM EST Body Mass Index 35.15 06/25/2023 8:28 AM EST documented in this encounter Progress Notes * Diane Santos MD - 06/25/2023 8:45 AM EST Patient is 27 year old at 37 4/7 weeks who presents for KARLA visit Denies contractions, leaking of fluid, or vaginal bleeding. Noted good movement. +Lowell Chowdary Denies headache, blurry vision, RUQ or epigastric pain. Planning for partner vasectomy. Would like to schedule IOL Problem list reviewed BP 128/74 | Ht 1.524 m (5') | Wt 81.6 kg (180 lb) | LMP 09/28/2022 | BMI 35.15 kg/m | BSA 1.86 m FH: 37 FHT: 135 Plan: Labor and preeclampsia warnings reviewed Flu vaccine declined IOL scheduled 07/15 at [facility] RTC 1 weeks V Danielle KNIGHT PhD documented in this encounter Nursing Notes * Jessica Phelan LPN - 06/25/2023 8:31 AM EST 37w4d Would like to schedule IOL. documented in this encounter Plan of Treatment Upcoming Encounters Date Type Department Care Team (Late st Contact Info) Description 07/02/2023 8:45 AM EST Office Visit Gynecology/Obstetrics [facility] [address] [place] [address] Jadyn Vanegas CRNP [address] [place] [address] 07/09/2023 9:45 AM EST Office Visit Gynecology/Obstetrics [facility] [address] [place] [address] Emily Gaines, DNP, CNM [address] [place] [address] Health Maintenance Due Date Last Done Comments [...] as of this encounter Visit Diagnoses Diagnosis 37 weeks gestation of - Primary state, incidental Normal in third trimester History of gestational diabetes in prior , currently with other poor obstetric history documented in this encounter Care Teams General Assembler Relationship Specialty Start Date End Date Milla Hughes DO [address] [facility] [place] [address] PCP - General Family Medicine 02/25/11 documented as of this encounter"
--- OUTSIDE RECORDS SUMMARY | 2023-07-15 22:35 | External Medical Summary ---
Author Name Unknown Address Unknown Organization [id number][place] [place] [facility] [address] [facility] [address] Laboratory Report Ordering Provider Test Date Status OCTAVIANO LEONARD 06/18/2023 10:50:14 Final Observation Date Value Abnormality Reference (Units ) Status Streptococcus agalactiae DNA [Presence] in Specimen by RAFAELA with probe detection 06/18/2023 10:50:14 Negative Negative Final No Group B Streptococcus det ected by culture-enhanced PCR (amplified probe).
The collection of vaginal/rectal swab specimen combinations (FDA approved specimen type) is optimal for the detection of Group B Streptococcus. Single source collection (vaginal only or rectal only) or alternate specimen sources may lead to false negative results. Performing Location [facility] [place] [address] [facility] [address]
--- OUTSIDE RECORDS SUMMARY | 2023-07-15 22:35 | External Medical Summary | Summary of Care ---
Author Name Unknown Organization [facility] Address [address] [facility] [place] [address] Phone [phone] Care Team Providers Care Diathermy Equipment Repairer Name Role Phone JensMilla elizabeth Primary Care Provider [phone] Reason for Visit * Reason Onset Date Comments Advice 06/28/2023 Encounter Details Date Type Department Care Team (Late st Contact Info) Description 06/28/2023 Telephone Gynecology/Obstetrics [facility] [address] [facility] [place] [address] , Nurse Plasterer [employer] [facility] [address] [facility] [place] [address] Advice Allergies No known active allergiesdocumented as of this encounter (statuses as of 06/28/2023) Medications Medication Sig Dispensed Refills Start Date End Date Status 19 29-1 MG Oral Tablet Chewable Take by mouth. 0 Active Omeprazole 20 MG Oral Capsule Delayed Release (PriLOSEC) Take 1 Capsule by mouth in the morning. 0 Active documented as of this encounter (statuses as of 06/28/2023) Active Problems Problem Noted Date Diagnosed Date Normal 11/26/2022 History of gestational diabe ryan in prior , currently 11/26/2022 Overview: Early GTT normal Estimated Date of Delivery Comme nts Yes 07/12/2023 Based on Ultraso und documented as of this encounter (statuses as of 06/28/2023) Resolved Problems Problem Noted Date Diagnosed Date Resolved Date Abnormal glucose tolerance i n mother complicating 09/25/2016 12/31/2016 Overview: Elevated glucola. 3hr GTT ordered- WNL Other normal , not first 04/29/2016 12/31/2016 Overview: Patient declines flu vaccine. 06/03/2016 Marley Silvestre, BRUNILDA Problem Action Taken Date entered Entered by Date resolved Nutrition Discussed WIC referral, Declined 07/29/2016 Marley Silvestre, RN 07/29/16 Problem Action Taken Date entered [...] as of this encounter (statuses as of 06/28/2023) Immunizations Name Administration Dates Next Due PPD [...] money to get more. Never true 11/26/2022 [place] Depression Scale Answer Date Recorded [place] Depression Scale Total 0 06/04/2023 The thought [...] encounter Miscellaneous Notes * Telephone Encounter - Kay Camejo RN - 06/28/2023 2:20 PM EST Pt states that she is drank more water last night than normal. She had the urge to go and was able.Today, continued to go often. She is questioning if this could be her water but she has never had her water break. Denies any vaginal bleeding, or contractions. + FM She was advised to put a pad on and walk around, if wet, needs to call back. Pt agreeable. * Telephone Encounter - Arti Berrios OSA - 06/28/2023 1:55 PM EST Patient has a few questions for the nurse. She is currently 38 weeks , 2 days ago she started to leak white discharge and is urinating more than normal. No odor and no abdominal pain. She canbe reached at [phone] documented in this encounter Plan of Treatment Upcoming Encounters Date Type Department Care Team (Late st Contact Info) Description 07/02/2023 8:45 AM EST Office Visit [facility] [place] [address] Jadyn Vanegas CRNP [address] [place] [address] 07/09/2023 9:45 AM EST Office Visit Gynecology[facility]stetrics [facility] [address] [facility] [place] [address] Emily Gaines, QUINN, CNM [address] [facility] [place] [address] Health Maintenance Due Date Last Done Comments [...] filedocumented as of this encounter Care Teams Diathermy Equipment Repairer Relationship Specialty Start Date End Date Milla Hughes DO [address] [place] [address] PCP - General Family Medicine 02/25/11 documented as of this encounter
--- OUTSIDE RECORDS SUMMARY | 2023-07-15 22:35 | External Medical Summary | Summary of Care ---
Author Name Unknown Organization [facility] Address [address] [place] [address] Phone [phone] Care Team Providers Care Lacquer Dipping Machine Operator Name Role Phone Armidaariela Milla Mannie DO Primary Care Provider [phone] Reason for Visit * Reason Onset Date Comments Test Results 04/26/2023 Encounter Details Date Type Department Care Team (Late st Contact Info) Description 04/26/2023 Telephone [facility] [address] [place] [address] Jadyn Vanegas CRNP [address] [place] [address] Test Results Allergies No known active allergiesdocumented as of this encounter (statuses as of 04/26/2023) Medications Medication Sig Dispensed Refills Start Date End Date Status 19 29-1 MG Oral Tablet Chewable Take by mouth. 0 Activ e documented as of this encounter (statuses as of 04/26/2023) Active Problems Problem Noted Date Diagnosed Date Normal 11/26/2022 History of gestational diabe ryan in prior , currently 11/26/2022 Overview: Early GTT normal Estimated Date of Delivery Comme nts Yes 07/12/2023 Based on Ultraso und documented as of this encounter (statuses as of 04/26/2023) Resolved Problems Problem Noted Date Diagnosed Date [...] as of this encounter (statuses as of 04/26/2023) Immunizations Name Administration Dates Next Due PPD [...] money to get more. Never true 11/26/2022 [place] Depression Scale Answer Date Recorded [place] Depression Scale Total 3 04/22/2023 The thought [...] encounter Miscellaneous Notes * Telephone Encounter - Jadyn Vanegas CRNP - 04/26/2023 1:59 PM EST Order placed. * Telephone Encounter - Adelaida Orta LPN - 04/26/2023 1:35 PM EST Spoke with lab, Please place fasting glucose. They will credit patient charges. Patient is going tofast and come in tomorrow morning. * Telephone Encounter - Jadyn Vanegas CRNP - 04/26/2023 1:14 PM EST Pt completed 3hr GTT today, however there is a note that the fasting lab was not drawn "due to lab error". She failed one of the 3 resulted lab draws, so without the fasting one, I have no way of knowing if she has GDM or not. Has the lab notified the pt of this? She is going to have to find the time to do a fasting lab some other day. Do I need to put in another order for this? documented in this encounter Plan of Treatment Upcoming Encounters Date Type Department Care Team (Late st Contact Info) Description 05/05/2023 9:15 AM EST Office Visit Gynecology/[facility]st[facility]s [facility] [address] [place] [address] Phyllis Silva PA-C [address] [place] [address] Scheduled Orders Name Type Priority Associated Diagnoses Orde r Schedule GLUCOSE, FASTING PLASMA Lab Routine Abnormal glucose tolerance in mother complicating Expected: 04/27/2023 (Approximate), Expires: 04/26/2024 Health Maintenance Due Date Last Done Comments [...] Diagnosis Abnormal glucose tolerance in mother complicating - Primary Abnormal maternal glucose tolerance, complicating , childbirth, or the puerperium, unspecified as to episode of care documented in this encounter Care Teams Lacquer Dipping Machine Operator Relationship Specialty Start Date End Date Milla Hughes DO [address] [place] [address] PCP - General Family Medicine 02/25/11 documented as of this encounter
--- OUTSIDE RECORDS SUMMARY | 2023-07-15 22:35 | External Medical Summary ---
Author Name Unknown Address Unknown Organization K0G:[facility] [address] - [address] [place] [address] Laboratory Report Ordering Provider Test Date Status GUY JAIME 04/27/2023 08:29:46 Final Based on guidelines from [place] [employer]:
70-99 mg/dL Normal
100-125 mg/dL Pre-diabetes
>125 mg/dL Diabetes, diagnosis requires two abnormal diabetes diagnostic test results Observation Date Value Abnormality Reference (Units ) Status Fasting glucose [Moles/volume] in Serum or Plasma 04/27/2023 08:29:46 95 70-99 (mg/dL) Final Performing Location [facility] [address] - [address] [place] [address]
--- OUTSIDE RECORDS SUMMARY | 2023-07-15 22:35 | External Medical Summary | Summary of Care ---
Author Name Unknown Organization [facility] Address [address] [place] [place] [address] Phone [phone] Care Team Providers Care Cognos Lead Name Role Phone Milla Hughes DO Primary Care Provider Reason for Visit * Reason Onset Date Comments Abnormal Test Results 04/22/2023 Encounter Details Date Type Department Care Team (Late st Contact Info) Description 04/22/2023 Telephone Gynecology/Obstetrics [facility] [address] [place] [address] Jadyn Vanegas CRNP [address] [facility] [place] [address] Abnormal Test Results Allergies No known active allergiesdocumented as of this encounter (statuses as of 06/10/2023) Medications Medication Sig Dispensed Refills Start Date End Date Status 19 29-1 MG Oral Tablet Chewable Take by mouth. 0 Activ e documented as of this encounter (statuses as of 06/10/2023) Active Problems Problem Noted Date Diagnosed Date Normal 11/26/2022 History of gestational diabe ryan in prior , currently 11/26/2022 Overview: Early GTT normal Estimated Date of Delivery Comme nts Yes 07/12/2023 Based on Ultraso und documented as of this encounter (statuses as of 06/10/2023) Resolved Problems Problem Noted Date Diagnosed Date [...] as of this encounter (statuses as of 06/10/2023) Immunizations Name Administration Dates Next Due PPD [...] money to get more. Never true 11/26/2022 [place] Depression Scale Answer Date Recorded [place] Depression Scale Total 0 06/04/2023 The thought [...] encounter Miscellaneous Notes * Telephone Encounter - Isabela Juan MED ASSIST - 04/23/2023 8:50 AM EST LMOM * Telephone Encounter - Adelaida Orta LPN - 04/23/2023 8:43 AM EST Patient notified. Please call to help her schedule 3 hour glucose Patient notified of abnormal glucola. The order has been placed in epic. Patient. advised to be NPO after 10pm the night before the test.The patient must stay on the premises for the entire time of the test. Patient counseled to take something to eat for after testing. Patient transferred to [facility] to schedule. * Telephone Encounter - Jadyn Vanegas CRNP - 04/22/2023 1:29 PM EST Please notify pt that glucola elevated (170). Needs 3hr GTT. Orders placed. documented in this encounter Plan of Treatment Upcoming Encounters Date Type Department Care Team (Late st Contact Info) Description 06/18/2023 10:30 AM EST Office Visit Gynecology/Obstetrics [facility] [address] [place] [address] Ruben Swenson MD [address] [place] [address] 06/25/2023 8:45 AM EST Office Visit Gynecology/Obstetrics [facility] [address] [place] [address] Diane Santos MD [address] [place] [address] [place] [address] 07/02/2023 8:45 AM EST Office Visit Gynecology/Obstetrics [facility] [address] [place] [address] Jadyn Vanegas CRNP [address] [place] [address] 07/09/2023 9:45 AM EST Office Visit Gynecology/Obstetrics [facility] [address] [place] [address] Emily Gaines, DNP, CNM [address] [facility] [place] [address] Health Maintenance Due Date Last Done Comments [...] care documented in this encounter Care Teams Cognos Lead Relationship Specialty Start Date End Date Milla Hughes DO [address] [facility] [address] PCP - General Family Medicine 02/25/11 documented as of this encounter
--- OUTSIDE RECORDS SUMMARY | 2023-07-15 22:35 | External Medical Summary | Summary of Care ---
Author Name Unknown Organization [facility] Address [address] [place] [address] Phone [phone] Care Team Providers Care Merchandise Execution Leader Name Role Phone JensMilla elizabeth Primary Care Provider [phone] Reason for Visit * Reason Comments Return Visit Encounter Details Date Type Department Care Team (Late st Contact Info) Description 06/18/2023 10:30 AM EST Office Visit Gynecology/Obstetric [facility] [address] [place] [address] Ruben Swenson MD [address] [place] [address] Normal in third trimester*; History of gestational diabetes in prior , currently Allergies No known active allergiesdocumented as of this encounter (statuses as of 06/18/2023) Medications Medication Sig Dispensed Refills Start Date End Date Status 19 29-1 MG Oral Tablet Chewable Take by mouth. 0 Active Omeprazole 20 MG Oral Capsule Delayed Release (PriLOSEC) Take 1 Capsule by mouth in the morning. 0 Active documented as of this encounter (statuses as of 06/18/2023) Active Problems Problem Noted Date Diagnosed Date Normal 11/26/2022 History of gestational diabe ryan in prior , currently 11/26/2022 Overview: Early GTT normal Estimated Date of Delivery Comme nts Yes 07/12/2023 Based on Ultraso und documented as of this encounter (statuses as of 06/18/2023) Resolved Problems Problem Noted Date Diagnosed Date [...] as of this encounter (statuses as of 06/18/2023) Immunizations Name Administration Dates Next Due PPD [...] money to get more. Never true 11/26/2022 [place] Depression Scale Answer Date Recorded [place] Depression Scale Total 0 06/04/2023 The thought [...] Sign Reading Time Taken Comments Blood Pressure 118/72 06/18/2023 10:12 AM EST Pulse - - Temperature - - Respiratory Rate - - Oxygen Saturation - - Inhaled Oxygen Concentration - - Weight 79.8 kg (176 lb) 06/18/2023 10:12 AM EST Height 152.4 cm (5') 06/18/2023 10:12 AM EST Body Mass Index 34.37 06/18/2023 10:12 AM EST documented in this encounter Progress Notes * Ruben Swenson MD - 06/18/2023 11:11 AM EST Pt doing well No complaints RTC 1 week * Ruben Swenson MD - 06/18/2023 10:35 AM EST Pt doing well No complaints GBS done RTc 1 week documented in this encounter Nursing Notes * Jessica Phelan LPN - 06/18/2023 10:21 AM EST 36w4d Denies concerns. Uncomfortable. Using prilosec for reflux. GBS today. documented in this encounter Plan of Treatment Upcoming Encounters Date Type Department Care Team (Late st Contact Info) Description 06/25/2023 8:45 AM EST Office Visit Gynecology/Obstetrics [facility] [address] [facility] [place] [address] Diane Santos MD [address] [place] [address] [place] [address] 07/02/2023 8:45 AM EST Office Visit Gynecology/Obstetrics [facility] [address] [facility] [place] [address] Jadyn Vanegas CRNP [address] [place] [address] 07/09/2023 9:45 AM EST Office Visit Gynecology/Obstetrics [facility] [address] [place] [address] Emily Gaines, DNP, CNM [address] [facility] [place] [address] Pending Results Name Type Priority Associated Diagnoses Date /Time GROUP B STREP CULTURE/PCR Lab Routine Normal in third trimester History of gestational diabetes in prior , currently 06/18/2023 10:50 AM EST Health Maintenance Due Date Last [...] history documented in this encounter Care Teams Merchandise Execution Leader Relationship Specialty Start Date End Date Milla Hughes DO [address] [facility] [place] [id number] PCP - General Family Medicine 02/25/11 documented as of this encounter
--- OUTSIDE RECORDS SUMMARY | 2023-07-15 22:35 | External Medical Summary | Summary of Care ---
Author Name Unknown Organization [facility] Address [address] [place] [address] Phone [phone] Care Team Providers Care Community Associate Name Role Phone JensMilla elizabeth Mannie COWART Primary Care Provider [phone] Reason for Visit * Reason Comments Return Visit Encounter Details Date Type Department Care Team (Late st Contact Info) Description 05/20/2023 10:45 AM EST Office Visit Gynecology/Obstetric s [facility] [address] [place] [address] BackBhavna carrasco CRNP [address] [place] [address] Normal in third trimester*; History of gestational diabetes in prior , currently Allergies No known active allergiesdocumented as of this encounter (statuses as of 05/20/2023) Medications Medication Sig Dispensed Refills Start Date End Date Status 19 29-1 MG Oral Tablet Chewable Take by mouth. 0 Activ e documented as of this encounter (statuses as of 05/20/2023) Active Problems Problem Noted Date Diagnosed Date Normal 11/26/2022 History of gestational diabe ryan in prior , currently 11/26/2022 Overview: Early GTT normal Estimated Date of Delivery Comme nts Yes 07/12/2023 Based on Ultraso und documented as of this encounter (statuses as of 05/20/2023) Resolved Problems Problem Noted Date Diagnosed Date [...] as of this encounter (statuses as of 05/20/2023) Immunizations Name Administration Dates Next Due PPD [...] money to get more. Never true 11/26/2022 [place] Depression Scale Answer Date Recorded [place] Depression Scale Total 3 04/22/2023 The thought [...] Sign Reading Time Taken Comments Blood Pressure 108/62 05/20/2023 10:44 AM EST Pulse - - Temperature - - Respiratory Rate - - Oxygen Saturation - - Inhaled Oxygen Concentration - - Weight 78 kg (172 lb) 05/20/2023 10:44 AM EST Height - - Body Mass Index 33.59 05/05/2023 8:58 AM EST documented in this encounter Progress Notes * Neda Garza LPN - 05/20/2023 10:44 AM EST 32w3d Denies vaginal bleeding/rom + movement No new concerns * Bhavna Matute CRNP - 05/20/2023 10:44 AM EST 32w3d Doing well, good movement. Denies leaking/bleeding or regular ctx. Had spontaneous labor at 40+ weeks with her first, post dates induction with her 2nd. Would really like to avoid an induction and post dates ; discussed option of membrane sweep at 39+ weeksas long as GBS is negative and she is dilated at the time. She is staying active and following a exercise regimen. 2 week return JAHAIRA Hernandez documented in this encounter Plan of Treatment Upcoming Encounters Date Type Department Care Team (Late st Contact Info) Description 06/04/2023 9:15 AM EST Office Visit Gynecology/Obstetrics [facility] [address] [place] [address] Phyllis Silva PA-C [address] [place] [address] Health Maintenance Due Date Last Done Comments [...] history documented in this encounter Care Teams Community Associate Relationship Specialty Start Date End Date Milla Hughes DO [address] [place] [address] PCP - General Family Medicine 02/25/11 documented as of this encounter
--- OUTSIDE RECORDS SUMMARY | 2023-07-15 22:35 | External Medical Summary | Summary of Care ---
Author Name Unknown Organization [facility] Address [address] [place] [address] Phone [phone] Care Team Providers Care Mother Tester Name Role Phone JensMilla elizabeth Mannie COWART Primary Care Provider [phone] Reason for Visit * Reason Comments Return Visit Encounter Details Date Type Department Care Team (Late st Contact Info) Description 06/04/2023 9:15 AM EST Office Visit Gynecology/Obstetric [facility] [address] [place] [address] Phyllis Silva PA-C [address] [place] [address] Normal in third trimester*; History of gestational diabetes in prior , currently Allergies No known active allergiesdocumented as of this encounter (statuses as of 06/04/2023) Medications Medication Sig Dispensed Refills Start Date End Date Status 19 29-1 MG Oral Tablet Chewable Take by mouth. 0 Activ e documented as of this encounter (statuses as of 06/04/2023) Active Problems Problem Noted Date Diagnosed Date Normal 11/26/2022 History of gestational diabe ryan in prior , currently 11/26/2022 Overview: Early GTT normal Estimated Date of Delivery Comme nts Yes 07/12/2023 Based on Ultraso und documented as of this encounter (statuses as of 06/04/2023) Resolved Problems Problem Noted Date Diagnosed Date Resolved Date Abnormal glucose tolerance i n mother complicating 09/25/2016 12/31/2016 Overview: Elevated glucola. 3hr GTT ordered- WNL Other normal , not first 04/29/2016 12/31/2016 Overview: Patient declines flu vaccine. 06/03/2016 Marely Silvestre, BRUNILDA Problem Action Taken Date entered [...] as of this encounter (statuses as of 06/04/2023) Immunizations Name Administration Dates Next Due PPD [...] money to get more. Never true 11/26/2022 [place] Depression Scale Answer Date Recorded [place] Depression Scale Total 0 06/04/2023 The thought [...] Sign Reading Time Taken Comments Blood Pressure 108/68 06/04/2023 9:13 AM EST Pulse - - Temperature - - Respiratory Rate - - Oxygen Saturation - - Inhaled Oxygen Concentration - - Weight 78.9 kg (174 lb) 06/04/2023 9:13 AM EST Height 152.4 cm (5') 06/04/2023 9:13 AM EST Body Mass Index 33.98 06/04/2023 9:13 AM EST documented in this encounter Progress Notes * Phyllis Silva PA-C - 06/04/2023 9:20 AM EST 34w4d Had vomiting just after new years now resolved. However struggling with diarrhea over last 4 days. Trying to stay hydrated. No known sick contacts or recent travel. Reviewed BRAT diet, importance of hydration, Imodium 1-2 days if needed. Following up with PCP if prolonged 7 days or more. Feels like skin is tight at night, getting harder to sleep as heartburn keeping her up. Switch to Prilosec, advised take in AM 30 minutes before eating. Then Pepcid PRN at bedtime. Denies bleeding, leaking. Pos FM. Reports BH contractions. No regular time able contractions. Reviewed GBS next visit RTC in 2 weeks Phyllis Silva PA-C documented in this encounter Nursing Notes * Jessica Phelan LPN - 06/04/2023 9:26 AM EST 34w4d Berny for the past week. Intermittent. Stomach feels tight and uncomfortable. documented in this encounter Plan of Treatment Upcoming Encounters Date Type Department Care Team (Late st Contact Info) Description 06/18/2023 10:30 AM EST Office Visit Gynecology/Obstetrics [facility] [address] [place] [address] Ruben Swenson MD [address] [place] [address] 06/25/2023 8:45 AM EST Office Visit Gynecology/Obstetrics [facility] [address] [place] [address] Diane Santos MD [address] [place] [address] 07/02/2023 8:45 AM EST Office Visit Gynecology/Obstetrics [facility] [address] [place] [address] Jadyn Vanegas CRNP [address] [place] [address] 07/09/2023 9:45 AM EST Office Visit Gynecology/Obstetrics [facility] [address] [place] [address] Emily Gaines, QUINN, CNM [address] [place] [address] Health Maintenance Due Date Last Done Comments [...] history documented in this encounter Care Teams Mother Tester Relationship Specialty Start Date End Date Milla Hughes DO [address] [place] [address] PCP - General Family Medicine 02/25/11 documented as of this encounter
--- OUTSIDE RECORDS SUMMARY | 2023-07-15 22:36 | External Medical Summary | Summary of Care ---
Author Name Unknown Organization [facility] Address [address] [place] [address] Phone [phone] Care Team Providers Care Wrapper Stemmer Operator Name Role Phone Saul Millaflavia Chand DO Primary Care Provider [phone] Reason for Visit * Reason Comments Return Visit Encounter Details Date Type Department Care Team Description 01/22/2023 Office Visit Gynecology/Obstetrics [facility] [address] [place] [address] Jadyn Vanegsa CRNP [address] [address] Normal in second trimester*; History of gestational diabetes in prior , currently Allergies No known active allergiesdocumented as of this encounter (statuses as of 01/22/2023) Medications Medication Sig Dispensed Refills Start Date End Date Status 19 29-1 MG Oral Tablet Chewable Take by mouth. 0 Activ e documented as of this encounter (statuses as of 01/22/2023) Active Problems Problem Noted Date Normal 11/26/2022 History of gestational diabetes in prior , currently 11/26/2022 Overview: Early GTT normal Estimated Date of Delivery Comme nts Yes 07/12/2023 Based on Ultraso und documented as of this encounter (statuses as of 01/22/2023) Resolved Problems Problem Noted Date Resolved Date Abnormal glucose tolerance in mother complicatin g 09/25/2016 12/31/2016 Overview: Elevated glucola. 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 Repeat culture obtained at NOB visit-negative 08/14/13 Repeat chlamydia at 36wks-negative documented as of this encounter (statuses as of 01/22/2023) Immunizations Name Administration Dates Next Due PPD 02/11/2016 TDAP (age 10 and older)(Boostrix) 02/11/2016 documented as of this encounter Social History Tobacco Use Types Packs/Day Years Used Date Smoking Tobacco: Former Cigarettes Q uit: 04/04/2016 Smokeless Tobacco: Never Alcohol Use Standard Drinks/Week Comments Not Currently 0 (1 standard drink = 0.6 oz pur e alcohol) 1 beer prior to +UPT Food Insecurity Answer Date Recorded Within the past 12 months, y ou worried that your food would run out before you got money to buy more. Never true 11/26/2022 Within the past 12 months, t he food you bought just didn't last and you didn't have money to get more. Never true 11/26/2022 Estimated Date of Delivery Comme nts Yes 07/12/2023 Based on Ultraso und Sex Assigned at Date Recorded Female 11/26/2022 1:37 PM E DT Job Start Date Occupation Industry Not on file Not on file Not on file documented as of this encounter Last Filed Vital Signs Vital Sign Reading Time Taken Comments Blood Pressure 110/60 01/22/2023 10:45 AM EDT Pulse - - Temperature - - Respiratory Rate - - Oxygen Saturation - - Inhaled Oxygen Concentration - - Weight 64 kg (141 lb) 01/22/2023 10:45 AM EDT Height 152.4 cm (5') 01/22/2023 10:45 AM EDT Body Mass Index 27.54 01/22/2023 10:45 AM EDT documented in this encounter Progress Notes * JAHAIRA Dumont - 01/22/2023 11:17 AM EDT 15w4d Complaints: none Feeling well. Hasn't felt FM. No contractions, bleeding, or LOF. Anatomy u/s with next visit. JAHAIRA Dumont * Tracy Jiménez LPN - 01/22/2023 10:49 AM EDT 15w4d Pt denies any concerns. documented in this encounter Plan of Treatment Upcoming Encounters Date Type Specialty Care Team Description 02/26/2023 Imaging Radiology 02/26/2023 Office Visit Gynecology Obstetrics Backer, JAHAIRA Carrasco [address] [place] [address] Scheduled Orders Name Type Priority Associated Diagnoses Orde r Schedule US PREG SINGLE/1ST GEST, 14 WEEKS OR LATER Medical Imaging Routine Normal in second trimester Expected: 02/20/2023 (Approximate), Expires: 02/21/2024 Health Maintenance Due Date Last Done Comments Hepatitis B (1 of 3 - 3-dose series) 1994 COVID-19 Vaccine (#1) 04/12/1995 Depression Screening, Annual for Pts 12 and Over 04/05/2021 04/05/2020 Influenza Vaccine (FLU shot) (#1) 2023 Pap Smear 08/18/2025 08/18/2022, 11/21, 04/29/2016, Additional history exists DTaP,Tdap,and Td Vaccines (2 - Td or Tdap) 02/10/2026 02/11/2016 Hepatitis C Screening Completed 11/26/2022 , 11/26/2022, 11/26/2022 GARDASIL-HPV IMMUNIZATION SERIES Aged Out No longer [...] this encounter Visit Diagnoses Diagnosis Normal in second trimester- Primary History of gestational diabetes in prior , currently with other poor obstetric history documented in this encounter Care Teams Wrapper Stemmer Operator Relationship Specialty Start Date End Date Milla Hughes, [address] [place] [address] PCP - General Family Medicine 02/25/11 documented as of this encounter
--- OUTSIDE RECORDS SUMMARY | 2023-07-15 22:36 | External Medical Summary ---
Author Name Unknown Address Unknown Organization [id number]:LABORATORY [facility] - [address] [place] [address] Laboratory Report Ordering Provider Test Date Status GUY JAIME 04/26/2023 10:28:59 Final Observation Date Value Abnormality Reference (Units ) Status Glucose, 2-hr post glucose challenge 04/26/2023 10:28:59 118 70-154 (mg/dL) Final Performing Location LAB[facility]ATORY [facility] 57-1 0 - [address] [place] [address]
--- OUTSIDE RECORDS SUMMARY | 2023-07-15 22:36 | External Medical Summary ---
Author Name Unknown Address Unknown Organization K0G:LAB[facility]ATORY [place] 57-10 - [address] [place] [address] Laboratory Report Ordering Provider Test Date Status ADDISONGUY 04/26/2023 09:21:25 Final Based on ACOG guideline, ges tational diabetes mellitus is diagnosed when any of the following is met:
Fasting is greater than or equal to 95 mg/dL
1 hour is greater than or equal to 180 mg/dL
2 hour is greater than or equal to 155 mg/dL
3 hour is greater than or equal to 140 mg/dL Observation Date Value Abnormality Reference (Units ) Status Glucose, fasting 04/26/2023 09:21:25 Final Testing not performed due to lab error Performing Location LABORATORY [facility] 57-1 0 - [address] [place] [address]
--- OUTSIDE RECORDS SUMMARY | 2023-07-15 22:36 | External Medical Summary | Summary of Care ---
Author Name Unknown Organization [facility] Address [address] [facility] [address] Phone [phone] Care Team Providers Care Air Table Operator Name Role Phone MyaMilla saini Mannie COWART Primary Care Provider [phone] Reason for Visit * Reason Comments Outpatient Testing Encounter Details Date Type Department Care Team (Late st Contact Info) Description 04/26/2023 8:10 AM EST Laboratory Laboratory, [facility] [address] [place] [address] [facility] [address] [place] [address] Abnormal glucose tolerance in mother complicating Allergies [...] money to get more. Never true 11/26/2022 [place] Depression Scale Answer Date Recorded [place] Depression Scale Total 3 04/22/2023 The thought [...] Visit Gynecology/Obstetrics [facility] [address] [place] [address] Phyllis Silva PA-C [address] [place] [address] Pending Results Name Type Priority Associated Diagnoses Date /Time GESTATIONAL GLUCOSE TOLERANCE, 3 HOUR Lab Routine Abnormal glucose tolerance in mother complicating 04/26/2023 9:21 AM EST 100-G GESTATIONAL GLUCOSE, 3 HOUR Lab Routine Abnormal glucose tolerance in mother complicating 04/26/2023 11:34 AM EST Health Maintenance Due Date Last [...] Not on filedocumented as of this encounter Procedures Procedure Name Priority Date/Time Associated Diagnosis Comments 100-G GESTATIONAL GLUCOSE, 2 HOUR Routine 04/26/2023 10:28 AM EST Abnormal glucose tolerance in mother complicating 100-G GESTATIONAL GLUCOSE, 1 HOUR Routine 04/26/2023 9:25 AM EST Abnormal glucose tolerance in mother complicating 100-G GESTATIONAL GLUCOSE, FASTING Routine 04/26/2023 9:21 AM EST Abnormal glucose tolerance in mother complicating documented in this encounter Results * 100-G GESTATIONAL GLUCOSE, 2 HOUR (04/26/2023 10:28 AM EST) 100-g Gestational Glucose, 2 Hour 118 70 - 154 mg/dL 04/26/2023 11:21 AM EST [facility] [place] [facility]-10 Blood Venous blood specimen / Unknown Venipuncture / Unknown 04/26/2023 10:28 AM EST 04/26/2023 10:29 AM EST Jadyn Chand Guilherme CAMPO LAB BLOOD ORDERABLES LAB[facility]ATORY [facility] 57[facility] [place] [address] * (ABNORMAL) 100-G GESTATIONAL GLUCOSE, 1 HOUR (04/26/2023 9:25 AM EST) 100-g Gestational Glucose, 1 Hour 211(H) 70 - 179 mg/dL 04/26/2023 10:11 AM EST [facility]10 Blood Venous blood specimen / Unknown Venipuncture / Unknown 04/26/2023 9:25 AM EST 04/26/2023 9:25 AM EST Jadyn CAMPO LAB BLOOD ORDERABLES LAB[facility]ATORY [facility] [place] [address] * 100-G GESTATIONAL GLUCOSE, FASTING (04/26/2023 9:21 AM EST) 100-g Gestational Glucose, Fasting 04/26/2023 9:32 AM EST [facility] [place] [facility] 57-10 Comment:Testing not performe d due to lab error Blood Venous blood specimen / Unknown Venipuncture / Unknown 04/26/2023 9:21 AM EST 04/26/2023 9:21 AM EST Narrative LABORATORY [facility] 57-10 - 04/26/2023 9:32 AM EST Based on ACOG guideline, gestational diabetes mellitus is diagnosed when any of the following is met: Fasting is greater than or equal to 95 mg/dL 1 hour is greater than or equal to 180 mg/dL 2 hour is greater than or equal to 155 mg/dL 3 hour is greater than or equal to 140 mg/dL Jadyn CAMPO LAB BLOOD ORDERABLES [facility] [place] [address] documented in this encounter Visit Diagnoses Diagnosis Abnormal glucose tolerance in mother complicating Abnormal maternal glucose tolerance, complicating , childbirth, or the puerperium, unspecified as to episode of care documented in this encounter Care Teams Air Table Operator Relationship Specialty Start Date End Date Milla Hughes DO [address] [place] [address] PCP - General Family Medicine 02/25/11 documented as of this encounter
--- OUTSIDE RECORDS SUMMARY | 2023-07-15 22:36 | External Medical Summary ---
Author Name Unknown Address Unknown Organization K0G:[facility]ORY [facility] 57[facility] - [address] [place] [address] Laboratory Report Ordering Provider Test Date Status ADDISONGUY 04/22/2023 10:25:07 Final Observation Date Value Abnormality Reference (Units ) Status Glucose [Moles/volume] in Serum or Plasma --1 hour post 50 g glucose PO 04/22/2023 10:25:07 170 Above high normal 70-129 (mg/dL) Final Performing Location [facility]ORY [facility] 57-[address] 0 - [address] [place] [address]
--- OUTSIDE RECORDS SUMMARY | 2023-07-15 22:36 | External Medical Summary ---
Author Name Unknown Address Unknown Organization [id number]:LAB[facility]ATORY [facility] - [address] [place] [address] Laboratory Report Ordering Provider Test Date Status GUY JAIME 04/22/2023 10:25:07 Final Observation Date Value Abnormality Reference (Units ) Status Vitamin B12 04/22/2023 10:25:07 834 706-8159 (pg/mL) Final Performing Location LABORATORY [facility] - [address] [place] [address]
--- OUTSIDE RECORDS SUMMARY | 2023-07-15 22:36 | External Medical Summary | Summary of Care ---
Author Name Unknown Organization [facility] Address [address] [place] [address] Phone [phone] Care Team Providers Care Cashier And Waiter/Waitress Name Role Phone Milla Hughes DO Primary Care Provider Reason for Visit * Reason Onset Date Comments Advice 03/01/2023 possible R eye i nfection - concerned about pink eye Encounter Details Date Type Department Care Team Description 03/01/2023 Telephone [facility] [address] [place] [address] Milla Hughes DO [address] [place] [address] Advice (possible R eye infection - concern... Allergies No known active allergiesdocumented as of this encounter (statuses as of 03/09/2023) Medications Medication Sig Dispensed Refills Start Date End Date Status 19 29-1 MG Oral Tablet Chewable Take by mouth. 0 Activ e documented as of this encounter (statuses as of 03/09/2023) Active Problems Problem Noted Date Normal 11/26/2022 History of gestational diabetes in prior , currently 11/26/2022 Overview: Early GTT normal Estimated Date of Delivery Comme nts Yes 07/12/2023 Based on Ultraso und documented as of this encounter (statuses as of 03/09/2023) Resolved Problems Problem Noted Date Resolved Date [...] group B Streptoc occus 08/24/2013 04/05/2014 Overview: 3/24/14: 10,000-100,000 colonies GBS in urine at NOB visit IV abx in labor , normal first 08/14/2013 04/05/20 14 Chlamydia infection, current 4 04/05/2014 Overview: Diagnosed elsewhere in early , per pt she and partner were treated. Repeat culture obtained at NOB visit-negative 08/14/13 Repeat chlamydia at 36wks-negative documented as of this encounter (statuses as of 03/09/2023) Immunizations Name Administration Dates Next Due PPD [...] encounter Miscellaneous Notes * Telephone Encounter - APRIL Cordoba - 03/09/2023 8:59 AM EDT Patient states she thinks it was just allergies bc she is better now and doesn't need an appointment. 03/09/2023 * Telephone Encounter - Jacquelin Calixto LPN - 03/06/2023 9:06 AM EDT Attempted to call patient, no answer, unable to leave a message * Telephone Encounter - APRIL Meek - 03/01/2023 9:07 AM EDT Reason for call: possible R eye infection - concerned about pink eye Preferred pharmacy: [facility]/pharmacy #[id number][facility] Caller: patient Callback number: [phone] documented in this encounter Plan of Treatment Upcoming Encounters Date Type Specialty Care Team Description 03/12/2023 Imaging Radiology 03/25/2023 Office Visit Gynecology Obstetrics Jadyn Vanegas CRNP [address] [place] [address] Health Maintenance Due Date Last Done Comments [...] filedocumented as of this encounter Care Teams Cashier And Waiter/Waitress Relationship Specialty Start Date End Date Milla Hughes DO [address] [place] [address] [place] [address] PCP - General Family Medicine 02/25/11 documented as of this encounter
--- OUTSIDE RECORDS SUMMARY | 2023-07-15 22:36 | External Medical Summary ---
Author Name Unknown Address Unknown Organization K01:LABORATORY [address] [place] [address] Laboratory Report Ordering Provider Test Date Status GUY JAIME 04/22/2023 10:25:07 Final Observation Date Value Abnormality Reference (Units ) Status SYNC LEUKOCYTES IN BLOOD BY AUTOMATED COUNT 04/22/2023 10:25:07 8.47 4.00-10.80 (K/uL) Final Segs 04/22/2023 10:25:07 69.3 40.0-75.0 (%) Final Lymphs % 04/22/2023 10:25:07 22.3 18.0-42.0 (%) Final Monos 04/22/2023 10:25:07 6.4 1.0-11.0 (%) Final Eosinophils 04/22/2023 10:25:07 0.7 0.0-6.0 (%) Final Basos 04/22/2023 10:25:07 0.4 0.0-2.0 (%) Final Immature Granulocyte, Percent 04/22/2023 10:25:07 0.9 0.0-2.0 (%) Final Absolute Segs 04/22/2023 10:25:07 5.87 1.80-7.70 (K/uL) Final Lymphs, absolute 04/22/2023 10:25:07 1.89 1.00-4.80 (K/ul) Final Monos, Abs 04/22/2023 10:25:07 0.54 0.00-1.10 (K/uL) Final Eos, Abs 04/22/2023 10:25:07 0.06 0.00-0.70 (K/uL) Final Basos, Abs 04/22/2023 10:25:07 0.03 0.00-0.20 (K/uL) Final Immature Granulocytes, Number 04/22/2023 10:25:07 0.08 0.00-0.20 (K/uL) Final Performing Location [facility] [place] [address] [facility] [address]
--- OUTSIDE RECORDS SUMMARY | 2023-07-15 22:36 | External Medical Summary ---
Author Name Unknown Address Unknown Organization K01:LABORATORY [facility] - [address] [place] [address] Laboratory Report Ordering Provider Test Date Status GUY JAIME 04/22/2023 10:25:07 Final Observation Date Value Abnormality Reference (Units ) Status Folic Acid 04/22/2023 10:25:07 >20.0 >4.5 (ng/ mL) Final Performing Location LABORATORY [facility] - [address] [place] [address]
--- OUTSIDE RECORDS SUMMARY | 2023-07-15 22:36 | External Medical Summary | Summary of Care ---
Author Name Unknown Organization [facility] Address [address] [facility] [place] [address] Phone [phone] Care Team Providers Care Commercial Lending Assistant Name Role Phone JensMilla elizabeth Mannie COWART Primary Care Provider [phone] Reason for Visit * Reason Comments Outpatient Testing Encounter Details Date Type Department Care Team (Late st Contact Info) Description 04/22/2023 9:10 AM EST Laboratory Laboratory, [facility] [address] [place] [address] [facility] [address] [place] [address] Normal in second trimester Allergies No known active allergiesdocumented as of this encounter (statuses as of 04/22/2023) Medications Medication Sig Dispensed Refills Start Date End Date Status 19 29-1 MG Oral Tablet Chewable Take by mouth. 0 Activ e documented as of this encounter (statuses as of 04/22/2023) Active Problems Problem Noted Date Diagnosed Date Normal 11/26/2022 History of gestational diabe ryan in prior , currently 11/26/2022 Overview: Early GTT normal Estimated Date of Delivery Comme nts Yes 07/12/2023 Based on Ultraso und documented as of this encounter (statuses as of 04/22/2023) Resolved Problems Problem Noted Date Diagnosed Date [...] as of this encounter (statuses as of 04/22/2023) Immunizations Name Administration Dates Next Due PPD [...] money to get more. Never true 11/26/2022 [place] Depression Scale Answer Date Recorded [place] Depression Scale Total 3 04/22/2023 The thought [...] [facility] [address] [place] [address] Phyllis Silva PA-C [address] [place] [place] [address] Pending Results Name Type Priority Associated Diagnoses Date /Time CBC WITH WBC DIFFERENTIAL AND ANEMIA REFLEX WORKUP Lab Routine Normal in second trimester 04/22/2023 10:25 AM EST 50-G GESTATIONAL GLUCOSE, 1 HOUR Lab Routine Normal in second trimester 04/22/2023 10:25 AM EST SYPHILIS ANTIBODY SCREEN WITH REFLEX TO RPR Lab Routine Normal in second trimester 04/22/2023 10:25 AM EST ANEMIA CBC Lab Routine Normal in second trimester 04/22/2023 10:25 AM EST DIFFERENTIAL, AUTOMATED Lab Routine Normal in second trimester 04/22/2023 10:25 AM EST ANEMIA REFLEX CHEMISTRY HOLD Lab Routine Normal in second trimester 04/22/2023 10:25 AM EST SYPHILIS ANTIBODY SCREEN Lab Routine Normal in second trimester 04/22/2023 10:25 AM EST Health Maintenance Due Date Last [...] encounter Visit Diagnoses Diagnosis Normal in second trimester documented in this encounter Care Teams Commercial Lending Assistant Relationship Specialty Start Date End Date Milla Hughes DO [address] [facility] [place] [address] PCP - General Family Medicine 02/25/11 documented as of this encounter
--- OUTSIDE RECORDS SUMMARY | 2023-07-15 22:36 | External Medical Summary | Summary of Care ---
Author Name Unknown Organization [facility] Address [address] [place] [address] Phone [phone] Care Team Providers Care Assembler Knife Name Role Phone MyaMilla saini Mannie COWART Primary Care Provider [phone] Reason for Visit * Reason Comments Return Visit Encounter Details Date Type Department Care Team Description 02/26/2023 Office [facility] [address] [place] [address] Bhavna Matute CRNP [address] [place] [address] Normal in second trimester*; History of gestational diabetes in prior , currently Allergies No known active allergiesdocumented as of this encounter (statuses as of 02/26/2023) Medications Medication Sig Dispensed Refills Start Date End Date Status 19 29-1 MG Oral Tablet Chewable Take by mouth. 0 Activ e documented as of this encounter (statuses as of 02/26/2023) Active Problems Problem Noted Date Normal 11/26/2022 History of gestational diabetes in prior , currently 11/26/2022 Overview: Early GTT normal Estimated Date of Delivery Comme nts Yes 07/12/2023 Based on Ultraso und documented as of this encounter (statuses as of 02/26/2023) Resolved Problems Problem Noted Date Resolved Date [...] in labor , normal first 08/14/2013 04/05/20 Chlamydia infection, current 4 04/05/2014 Overview: Diagnosed elsewhere in early , per pt she and partner were treated. Repeat culture obtained at NOB visit-negative 08/14/13 Repeat chlamydia at 36wks-negative documented as of this encounter (statuses as of 02/26/2023) Immunizations Name Administration Dates Next Due PPD [...] Sign Reading Time Taken Comments Blood Pressure 110/62 02/26/2023 11:21 AM EDT Pulse - - Temperature - - Respiratory Rate - - Oxygen Saturation - - Inhaled Oxygen Concentration - - Weight 68.9 kg (152 lb) 02/26/2023 11:21 AM EDT Height - - Body Mass Index 29.69 01/22/2023 10:45 AM EDT documented in this encounter Patient Instructions * Patient Instructions* JAHAIRA Diane - 02/26/2023 11:27 AM EDT Round Ligament Pain: Causes and Treatment Round ligament pain is most common during the 2nd and 3rd trimesters. Women may have a sharp pain in their abdomen or hip area that is either on one side or both. Some women even report pain that extends into the groin area. Round ligament pain is considered a normal part of as your body goes through many different changes. What causes round ligament pain? The round ligament supports the uterus and stretches during . It connects the front portion of the uterus to the groin. These ligaments contract and relax like muscles, but much more slowly. Any movement (including going from a sitting to standing position quickly, laughing, or coughing) that stretches these ligaments by making them contract quickly, can cause a woman to experience pain.Round ligament pain should only last for a few seconds. Stretching is the best way to loosen things up and prevent round ligament pain. Here are our top round ligament pain stretches to get you started: #1 CAT-COW Start on your hands and knees, shoulders above wrists and hips above knees. Breathe in and drop your stomach down, arching your back and looking upward. Then, breathe out and round your upper back toward the ceiling, allowing your head to drop and face your stomach. #2 HIP FLEXOR STRETCH In all fours position with your arm resting on a chair or birthing ball, bring the right leg forward while extending/straightening the left leg back until you feel a stretch in the front of the left thigh. Hold the position for 5-10 seconds. Repeat on the opposite side. #3 SIDE LYING SAVASANA Lie on your left side in a position, tuck your left arm beneath your head, and place a pillowbetween your legs to relieve pressure on your lower back. Flex your hips and remain in this position for several minutes. Inhale deeply as you stretch. #4 THE PELVIC CLOCK Sit on a birthing ball or chair with your feet flat on the floor. Bring your hands to your hips so you can feel the movement in your pelvis as you stretch. Now, imagine a clock resting on your pelvis--with your navel at 12 oclock and pubic bone at 6 oclock. Engage your abs and lengthen your spine. Inhale and tilt your pelvis toward a 3 oclock position. Continue on the inhale and move around the clock, creating a small arch in your lower back. Exhale and bring your pelvis to 9 oclock. Continue your exhale until you reach a neutral 12 oclock position. #5 BUTTERFLY STRETCH Sit upright on a firm surface. Place the soles of your feet together and pulse your legs up and down, like the wings of a butterfly. You should feel a stretch in your inner thighs. For an even deeperstretch, place your hands on your knees for resistance. Other Ways to Relieve Round Ligament Pain While round ligament pain stretches are the best way to reduce pain, there are a few other things you can try to alleviate the discomfort : A belly band to give your bump some extra support Hydration to improve circulation to your growing tissue Rest to allow your muscles to recover from any movement Massage to give that area some extra TLC Acetaminophen to get some medicated pain relief documented in this encounter Progress Notes * Neda Garza LPN - 02/26/2023 11:21 AM EDT 20w4d Denies vaginal bleeding/rom + movement Anatomy today- needs 2 wk f/u * JAHAIRA Diane - 02/26/2023 11:10 AM EDT 20w4d + movement. No bleeding/cramping. Some round ligament pain, reviewed remedies. Discussed/declined quad screen. Anatomy scan today, report in process. +cardiac activity on scan. Will need f/u imaging, ordered. Discussed weight gain (TWG 29lbs) - staying very active with walking, yoga. Eating more pasta/bread. Recommend increasing protein and produce. 4 week return JAHAIRA Hernandez documented in this encounter Plan of Treatment Upcoming Encounters Date Type Specialty Care Team Description 03/12/2023 Imaging Radiology 03/25/2023 Office Visit Gynecology Obstetrics Jadyn Vanegas CRNP [address] [place] [address] Scheduled Orders Name Type Priority Associated Diagnoses Orde r Schedule US PREG LIMITED 1 OR MORE FETUSES Medical Imaging Routine Normal in second trimester Expected: 03/12/2023 (Approximate), Expires: 03/29/2024 Health Maintenance Due Date Last Done Comments [...] history documented in this encounter Care Teams Assembler Knife Relationship Specialty Start Date End Date Milla Hughes, [address] [place] [address] PCP - General Family Medicine 02/25/11 documented as of this encounter
--- OUTSIDE RECORDS SUMMARY | 2023-07-15 22:36 | External Medical Summary | Summary of Care ---
Author Name Unknown Organization [facility] Address [address] [place] [address] Phone [phone] Care Team Providers Care Design Studio Consultant Name Role Phone Armidaarieal Milla Mannie DO Primary Care Provider [phone] Reason for Visit * Reason Comments Return Visit Encounter Details Date Type Department Care Team (Late st Contact Info) Description 03/25/2023 9:00 AM EDT Office Visit Gynecology/Obstetric s [facility] [address] [place] [address] Jadyn Vanegas CRNP [address] [place] [address] Normal in second trimester*; History of gestational diabetes in prior , currently Allergies No known active allergiesdocumented as of this encounter (statuses as of 03/25/2023) Medications Medication Sig Dispensed Refills Start Date End Date Status 19 29-1 MG Oral Tablet Chewable Take by mouth. 0 Activ e documented as of this encounter (statuses as of 03/25/2023) Active Problems Problem Noted Date Diagnosed Date Normal 11/26/2022 History of gestational diabe ryan in prior , currently 11/26/2022 Overview: Early GTT normal Estimated Date of Delivery Comme nts Yes 07/12/2023 Based on Ultraso und documented as of this encounter (statuses as of 03/25/2023) Resolved Problems Problem Noted Date Diagnosed Date [...] as of this encounter (statuses as of 03/25/2023) Immunizations Name Administration Dates Next Due PPD [...] money to get more. Never true 11/26/2022 [place] Depression Scale Answer Date Recorded [place] Depression Scale Total 0 11/26/2022 The thought of harming myself has occurred to me . Never 11/26/2022 Estimated Date of Delivery Comme nts [...] Reading Time Taken Comments Blood Pressure 110/60 03/25/2023 8:52 AM EDT Pulse - - Temperature - - Respiratory Rate - - Oxygen Saturation - - Inhaled Oxygen Concentration - - Weight 73.2 kg (161 lb 6.4 oz) 03/25/2023 8:52 A M EDT Height 152.4 cm (5') 03/25/2023 8:52 AM EDT Body Mass Index 31.52 03/25/2023 8:52 AM EDT documented in this encounter Progress Notes * Jadyn Vanegas CRNP - 03/25/2023 9:09 AM EDT 24w3d Complaints: none Feeling well overall. Great FM. No contractions, bleeding, or LOF. Glucola with next visit. Discussed weight gain. She feels she is eating healthy and is more active than she ever has been during a . JAHAIRA Dumont * Tracy Jiménez LPN - 03/25/2023 9:04 AM EDT 24w3d Pt denies any concerns, 28wk packet provided. documented in this encounter Plan of Treatment Upcoming Encounters Date Type Department Care Team (Late st Contact Info) Description 04/22/2023 9:00 AM EST Office Visit Gynecology/Obstetrics [facility] [address] [place] [address] Jadyn Vanegas CRNP [address] [place] [address] 04/22/2023 9:10 AM EST Laboratory Laboratory, [facility] [address] [place] [phone] [facility] [address] [place] [address] Scheduled Orders Name Type Priority Associated Diagnoses Orde r Schedule CBC WITH WBC DIFFERENTIAL AND ANEMIA REFLEX WORKUP Lab Routine Normal in second trimester Expected: 04/24/2023 (Approximate), Expires: 03/25/2024 50-G GESTATIONAL GLUCOSE, 1 HOUR Lab Routine Normal in second trimester Expected: 04/24/2023 (Approximate), Expires: 03/25/2024 SYPHILIS ANTIBODY SCREEN WITH REFLEX TO RPR Lab Routine Normal in second trimester Expected: 04/24/2023 (Approximate), Expires: 03/25/2024 Health Maintenance Due Date Last Done Comments [...] history documented in this encounter Care Teams Design Studio Consultant Relationship Specialty Start Date End Date Milla Hughes DO [address] [place] [address] PCP - General Family Medicine 02/25/11 documented as of this encounter
--- OUTSIDE RECORDS SUMMARY | 2023-07-15 22:36 | External Medical Summary ---
Author Name Unknown Address Unknown Organization K01:LABORATORY [facility] - [address] [place] [address] Laboratory Report Ordering Provider Test Date Status ADDISONGUY 04/22/2023 10:25:07 Final Observation Date Value Abnormality Reference (Units ) Status TSH 04/22/2023 10:25:07 3.38 0.27-4.20 (uIU/mL) Final Performing Location LABORATORY [facility] - [address] [place] [address]
--- OUTSIDE RECORDS SUMMARY | 2023-07-15 22:36 | External Medical Summary ---
Author Name Unknown Address Unknown Organization [id number]:LABORATORY [facility] [place] - [address] [place] [address] Laboratory Report Ordering Provider Test Date Status ADDISONGUY 04/22/2023 10:25:07 Final Observation Date Value Abnormality Reference (Units ) Status Ferritin 04/22/2023 10:25:07 10 Below low normal 13- 150 (ng/mL) Final Performing Location LABORATORY [facility] [place] - [address] [place] [address]
--- OUTSIDE RECORDS SUMMARY | 2023-07-15 22:36 | External Medical Summary | Summary of Care ---
Author Name Unknown Organization [facility] Address [address] [place] [address] Phone [phone] Care Team Providers Care Floorwalker Name Role Phone Myayeny Milla Mannie DO Primary Care Provider [phone] Reason for Visit * Reason Comments Return Visit Encounter Details Date Type Department Care Team (Late st Contact Info) Description 04/22/2023 9:00 AM EST Office Visit Gynecology/Obstetric s [facility] [address] [place] [address] Jadyn Vanegas CRNP [address] [place] [address] Normal in third trimester*; History of gestational [...] money to get more. Never true 11/26/2022 [place] Depression Scale Answer Date Recorded [place] Depression Scale Total 3 04/22/2023 The thought [...] Sign Reading Time Taken Comments Blood Pressure 104/60 04/22/2023 8:36 AM EST Pulse - - Temperature - - Respiratory Rate - - Oxygen Saturation - - Inhaled Oxygen Concentration - - Weight 74.8 kg (165 lb) 04/22/2023 8:36 AM EST Height 152.4 cm (5') 04/22/2023 8:36 AM EST Body Mass Index 32.22 04/22/2023 8:36 AM EST documented in this encounter Progress Notes * Jadyn Vanegas CRNP - 04/22/2023 9:26 AM EST 28w3d C/o heartburn. Pepcid helping some, recommended she try Prilosec. Baby moving well. No contractions, bleeding, or LOF. Glucola today. Declines TDAP. JAHAIRA Dumont * Tracy Jiménez LPN - 04/22/2023 8:53 AM EST 28w3d Pt completing 28wk labs today. Pt denies any concerns. documented in this encounter Plan of Treatment Upcoming Encounters Date Type Department Care Team (Late st Contact Info) Description 05/05/2023 9:15 AM EST Office Visit Gynecology/Obstetrics [facility] [address] [place] [address] Phyllis Silva PA-C [address] [place] [address] Health Maintenance Due Date Last Done Comments [...] history documented in this encounter Care Teams Floorwalker Relationship Specialty Start Date End Date Milla Hughes DO [address] [place] [address] PCP - General Family Medicine 02/25/11 documented as of this encounter
--- OUTSIDE RECORDS SUMMARY | 2023-07-15 22:36 | External Medical Summary ---
Author Name Unknown Address Unknown Organization [id number]:LABORATORY [facility] [place] - [address] [place] [address] Laboratory Report Ordering Provider Test Date Status GUY JAIME 04/22/2023 10:25:07 Final Observation Date Value Abnormality Reference (Units ) Status Creatinine 04/22/2023 10:25:07 0.6 0.5-1.0 (mg/dL) Final Glomerular filtration rate/1.73 sq M.predicted [Volume Rate/Area] in Serum, Plasma or Blood by Creatinine-based formula (CKD-EPI) 04/22/2023 10:25:07 >90 >=60 (mL/min) Final eGFR is calculated based on the CKD-EPI 2020 equation Performing Location LABORATORY [facility] [place] - [facility] [address] [place] [address]
--- OUTSIDE RECORDS SUMMARY | 2023-07-15 22:36 | External Medical Summary ---
Author Name Unknown Address Unknown Organization [id number]:LABORATORY [facility] - [address] [place] [address] Laboratory Report Ordering Provider Test Date Status GUY JAIME 04/26/2023 09:25:50 Final Observation Date Value Abnormality Reference (Units ) Status Glucose [Mass/volume] in Serum or Plasma --1 hour post dose glucose 04/26/2023 09:25:50 211 Above high normal 70-179 (mg/dL) Final Performing Location LABORATORY [facility] 0 - [address] [place] [address]
--- OUTSIDE RECORDS SUMMARY | 2023-07-15 22:36 | External Medical Summary ---
Author Name Unknown Address Unknown Organization K01:LABORATORY [place] [address] [place] [address] Laboratory Report Ordering Provider Test Date Status VENKAT JAIMEOTONIEL 04/22/2023 10:25:07 Final Observation Date Value Abnormality Reference (Units ) Status Retic, % (auto) 04/22/2023 10:25:07 2.08 Above high normal 0.80-1.90 (%) Final Reticulocytes, Absolute 04/22/2023 10:25:07 80.1 31.3-100.1 (K/uL) Final Reticulocyte fraction, immature 04/22/2023 10:25:07 20.0 2.5-20.6 (%) Final Reticulocyte HGB 04/22/2023 10:25:07 33.2 29.7-37.4 (pg) Final Performing Location [facility] [place] [address]
--- OUTSIDE RECORDS SUMMARY | 2023-07-15 22:36 | External Medical Summary ---
Author Name Unknown Address Unknown Organization K01:[facility] [place] [address] [place] [address] Laboratory Report Ordering Provider Test Date Status GUY JAIME 04/22/2023 10:25:07 Final Observation Date Value Abnormality Reference (Units ) Status Iron 04/22/2023 10:25:07 65 33-151 (ug/dL) Final Iron-binding capacity 04/22/2023 10:25:07 427 Above high normal 250-425 (ug/dL) Final Transferrin Sat % 04/22/2023 10:25:07 15 15-55 (%) Final Performing Location LAB[facility]ORY [facility] [place] [address] [place] [address]
--- OUTSIDE RECORDS SUMMARY | 2023-07-15 22:36 | External Medical Summary | Summary of Care ---
Author Name Unknown Organization [facility] Address [address] [facility] [place] [address] Phone [phone] Care Team Providers Care Special Investigation Unit Investigator Name Role Phone JensMilla elizabeth Primary Care Provider Reason for Visit * Reason Onset Date Comments Information 03/11/2023 Encounter Details Date Type Department Care Team (Late st Contact Info) Description 03/11/2023 Telephone Rad[address] [place] [address] Backer, JAHAIRA Carrasco [address] [place] [address] Information Allergies No known active allergiesdocumented as of this encounter (statuses as of 03/30/2023) Medications Medication Sig Dispensed Refills Start Date End Date Status 19 29-1 MG Oral Tablet Chewable Take by mouth. 0 Activ e documented as of this encounter (statuses as of 03/30/2023) Active Problems Problem Noted Date Diagnosed Date Normal 11/26/2022 History of gestational diabe ryan in prior , currently 11/26/2022 Overview: Early GTT normal Estimated Date of Delivery Comme nts Yes 07/12/2023 Based on Ultraso und documented as of this encounter (statuses as of 03/30/2023) Resolved Problems Problem Noted Date Diagnosed Date [...] as of this encounter (statuses as of 03/30/2023) Immunizations Name Administration Dates Next Due PPD [...] money to get more. Never true 11/26/2022 [place] Depression Scale Answer Date Recorded [place] Depression Scale Total 0 11/26/2022 The thought [...] 04/22/2023 9:00 AM EST Office Visit Gynecology/Obstetrics [facility] [address] [place] [address] Jadyn Vanegas CRNP [address] [place] [address] 04/22/2023 9:10 AM EST Laboratory Laboratory, [facility] [address] [place] [id number] [facility] [address] [place] [address] Health Maintenance Due Date Last Done Comments [...] filedocumented as of this encounter Care Teams Special Investigation Unit Investigator Relationship Specialty Start Date End Date [facility]illa [facility] [address] [facility] [address] PCP - General Family Medicine 02/25/11 documented as of this encounter
--- OUTSIDE RECORDS SUMMARY | 2023-07-15 22:36 | External Medical Summary | Summary of Care ---
Author Name Unknown Organization [facility] Address [address] [place] [address] Phone [phone] Care Team Providers Care Research Worker Encyclopedia Name Role Phone JensMilla elizabeth Mannie COWART Primary Care Provider Encounter Details Date Type Department Care Team Description 02/19/2023 Telephone Gynecology/Obstetrics [facility] [address] [facility] [place] [address] Diane Santos MD [address] [facility] [place] [address] Allergies No known active allergiesdocumented as of this encounter (statuses as of 02/19/2023) Medications Medication Sig Dispensed Refills Start Date End Date Status -1 MG Oral Tablet Chewable Take by mouth. 0 Activ e documented as of this encounter (statuses as of 02/19/2023) Active Problems Problem Noted Date Normal 11/26/2022 History of gestational diabetes in prior , currently 11/26/2022 Overview: Early GTT normal Estimated Date of Delivery Comme nts Yes 07/12/2023 Based on Ultraso und documented as of this encounter (statuses as of 02/19/2023) Resolved Problems Problem Noted Date Resolved Date [...] abx in labor , normal first 08/14/2013 11/13/20 14 Chlamydia infection, current 4 04/05/2014 Overview: Diagnosed elsewhere in early , per pt she and partner were treated. Repeat culture obtained at NOB visit-negative 08/14/13 Repeat chlamydia at 36wks-negative documented as of this encounter (statuses as of 02/19/2023) Immunizations Name Administration Dates Next Due PPD [...] Telephone Encounter - Elvia Feldman RN - 02/19/2023 9:32 AM EDT Patient calling in asking about normal weight gain in . She is concerned about the amount of weight she has gained. States she exercises daily, and eats healthy. Patient states prior to she weighed about 125lbs. Patient states she now weighs almost 150lbs. Her most recent weight in chart is 141lb. Patient denies any concerning symptoms. Advised patient that she can gain on average 30lb in . Patient advised to continue to monitor and discuss with provider at next visit. documented in this encounter Plan of Treatment Upcoming Encounters Date Type Specialty Care Team Description 02/26/2023 Imaging Radiology 02/26/2023 Office Visit Gynecology Obstetrics Backer, JAHAIRA Carrasco [address] [place] [address] Health Maintenance Due Date Last Done Comments [...] filedocumented as of this encounter Care Teams Research Worker Encyclopedia Relationship Specialty Start Date End Date Milla Hughes, [address] [place] [address] PCP - General Family Medicine 02/25/11 documented as of this encounter
--- OUTSIDE RECORDS SUMMARY | 2023-07-15 22:36 | External Medical Summary ---
Author Name Unknown Address Unknown Organization K01:LABORATORY [facility] [place] - [address] [place] [address] Laboratory Report Ordering Provider Test Date Status GUY JAIME 04/22/2023 10:25:07 Final Observation Date Value Abnormality Reference (Units ) Status Treponema pallidum Ab [Presence] in Serum by Immunoassay 04/22/2023 10:25:07 Nonreactive Nonreactive Final No serologic evidence of syp hilis. No additional testing clinicially indicated at this time. Consider repeat testing in 2-4 weeks if acute or primary syphilis is suspected. Performing Location LABORATORY [facility] [place] - [address] [place] [address]
--- OUTSIDE RECORDS SUMMARY | 2023-07-15 22:36 | External Medical Summary ---
Author Name Unknown Address Unknown Organization K01:[facility] [place] [facility] [place] [address] [facility] [address] Laboratory Report Ordering Provider Test Date Status GUY JAIME 04/22/2023 10:25:07 Final Observation Date Value Abnormality Reference (Units ) Status WBC, Total 04/22/2023 10:25:07 8.47 4.00-10.8 0 (K/uL) Final RBC 04/22/2023 10:25:07 3.89 3.85-5.15 (M/uL) Final Hemoglobin 04/22/2023 10:25:07 11.9 Below low normal 12 .0-15.3 (g/dL) Final Anemia reflex testing trigge rs on a HGB < 12.0 for Females and HGB < 13.0 for Males in accordance with the WHO Anemia Guidelines
Anemia reflex testing triggers on a HGB < 12.0 for Females and HGB < 13.0 for Males in accordance with the WHO Anemia Guidelines HCT 04/22/2023 10:25:07 35.7 Below low normal 36. 0-45.2 (%) Final MCV 04/22/2023 10:25:07 91.8 81.5-97.5 (fL) Final MCH 04/22/2023 10:25:07 30.6 27.0-34.0 (pg) Final MCHC 04/22/2023 10:25:07 33.3 32.0-36.0 (g/dL) Final RDW 04/22/2023 10:25:07 13.4 11.5-15.5 (%) Final Platelets 04/22/2023 10:25:07 234 140-400 (K /uL) Final MPV 04/22/2023 10:25:07 10.6 6.6-11.1 ( fL) Final Nucleated erythrocytes/100 leukocytes [Ratio] in Blood by Automated count 04/22/2023 10:25:07 0 <=0 (/100 WBCs) Final Performing Location LABORATORY [facility] [place] - [address] [facility] [address]
[2023-07-15] MEDS: fentaNYL citrate PF 100 MCG/2 ML VIAL ONE (22:37)
[2023-07-15] MEDS: LIDOCAINE 2%/EPINEPHRINE 1:200,000 20 ML PF ONE (22:37)
[2023-07-15] MEDS: BUPIVACAINE 0.25% PF 30 ML VIAL ONE (22:37)
[2023-07-15] MEDS: fentANYL 2 MCG/ML BUPIVacaine 0.125%-NSS 100ML BAG ONE (22:38)
[2023-07-15] MEDS ORDERED: LIDOCAINE 2%/EPINEPHRINE 1:200,000 20 ML PF EPI STA (22:42)
[2023-07-15] MEDS ORDERED: diphenhydrAMINE 50 MG/ML VIAL IV PRN (22:42)
[2023-07-15] MEDS ORDERED: BUPIVACAINE 0.25% PF 30 ML VIAL EPI STA (22:42)
[2023-07-15] MEDS ORDERED: ePHEDrine sulfate 50 MG/ML AMP IV PRN (22:42)
[2023-07-15] MEDS ORDERED: NALOXONE HCL 1 MG in SODIUM CHLORIDE 0.9% 1,000 ML IV PRN (22:42)
[2023-07-15] MEDS ORDERED: fentaNYL citrate PF 100 MCG/2 ML VIAL EPI STA (22:42)
[2023-07-15] MEDS ORDERED: fentaNYL citrate PF 100 MCG/2 ML VIAL EPI PRN (22:42)
[2023-07-15] MEDS ORDERED: LIDOCAINE 2% MPF LOCAL 5 ML VIAL EPI PRN (22:42)
[2023-07-15] MEDS ORDERED: ROPIVACAINE 0.5% PF 5 MG/ML 20 ML VIAL EPI PRN (22:42)
[2023-07-15] MEDS ORDERED: NALOXONE HCL 0.4 MG/1 ML VIAL/CARP IV PRN (22:42)
[2023-07-15] MEDS ORDERED: BUPIVACAINE 0.25% PF 30 ML VIAL EPI PRN (22:42)
[2023-07-15] MEDS ORDERED: SODIUM CHLORIDE 0.9% PF INJ 10 ML VIAL EPI PRN (22:42)
[2023-07-15] MEDS ORDERED: NALBUPHINE HCL 5 MG in SYRINGE 0 ML IV PRN (22:42)
[2023-07-15] MEDS ORDERED: SODIUM CHLORIDE 0.9% PF INJ 10 ML VIAL EPI STA (22:42)
[2023-07-15] MEDS ORDERED: fentANYL 2 MCG/ML BUPIVacaine 0.125%-NSS 100ML BAG EPI PRN (22:42)
[2023-07-15] MEDS: OXYTOCIN 30 UNITS/NSS 30 UNITS/500 ML BAG IV PRN (23:31)
--- NOTE | 2023-07-15 23:39 | Delivery Summary ---
Vaginal Delivery Summary Date of Service July 15, 2023 Vaginal Delivery Summary live male YURI over intact perineum with delayed cord clamping and Apgars 8/9 weight pending. Placenta delivered spontaneously and intact. No tears. EBL 100 ml. Final sponge and instrument count are correct. Mom and baby stable.
[2023-07-15] MEDS ORDERED: HYDROCORTISONE ACETATE 25 MG SUPP PR PRN (23:44)
[2023-07-15] MEDS ORDERED: OXYTOCIN 30 UNITS/NSS 30 UNITS/500 ML BAG IV PRN (23:44)
[2023-07-15] MEDS ORDERED: BENZOCAINE 20% SPRY 85 APPLN/85 GM CAN EXT PRN (23:44)
[2023-07-15] MEDS ORDERED: ACETAMINOPHEN 325 MG TAB PO PRN (23:44)
[2023-07-16] MEDS: SODIUM CHLORIDE 0.9% PF INJ 10 ML VIAL ONE (02:09)
[2023-07-16] MEDS: ePHEDrine sulfate 50 MG/ML AMP ONE (02:09)
[2023-07-16 07:36] LABS: Hematocrit (blood only) 36.3 % (37.0-47.0); Hemoglobin 12.4 g/dl (12.0-16.0); Mean Corpuscular Hemoglobin 28.4 pg (25.0-34.0); Mean Corpuscular Hgb Conc 34.2 g/dL (32.0-36.0); Mean Corpuscular Volume 83.3 fL (80.0-100.0); Mean Platelet Volume 10.4 fL (9.4-12.4); Platelet Count 219 K/uL (130-400); RDW Coefficient of Variation 13.6 % (11.5-14.5); RDW Standard Deviation 41.1 fL (36.4-46.3); Red Blood Count 4.36 M/uL (4.20-5.40); White Blood Count 15.46 K/ul (4.8-10.8)
[2023-07-16] MEDS: FERROUS SULFATE 325 MG TAB PO SCH (08:55)
[2023-07-16] MEDS: PRENATAL VITAMIN 1 TAB PO SCH (08:55)
[2023-07-16] MEDS: IBUPROFEN 600 MG TAB PO PRN (08:55)
[2023-07-16] MEDS: DOCUSATE SODIUM 100 MG CAP PO SCH (08:55)
[2023-07-16] MEDS: DIPHTHER/TETAN/PERTUS Vaccine (Tdap, Adol/Adult) 0.5mL IM ONE (08:56)
[2023-07-16] MEDS ORDERED: PRENATAL VITAMIN 1 TAB PO SCH (09:00)
[2023-07-16] MEDS: PANTOprazole 40 MG TAB PO SCH (09:06)
--- NOTE | 2023-07-16 09:36 | Anesthesia Procedure Note ---
Date of Service July 16, 2023 Anesthesia Post Epidural Note Vital Signs Vital Signs: Temp Pulse Resp BP Pulse Ox O2 Del Method 36.7 C 95 H 18 127/65 97 Room Air 07/16/23 08:20 07/16/23 08:20 07/16/23 08:20 07/16/23 08:20 07/16/23 02:50 07/16/23 08:20 Pain Intensity Bilateral Lower Abdomen: Pain Intensity: 4 Notes Mental Status: alert / awake / arousable and participated in evaluation Patient Amnestic to Procedure: No Nausea / Vomiting: adequately controlled Pain: adequately controlled Airway Patency, RR, SpO2: stable & adequate BP & HR: stable & adequate Hydration State: stable & adequate Neuraxial Anesthesia: was administered and sensory block resolved Anesthetic Complications: no major complications apparent and Pt Satisfied with anesthetic care Epidural: Removed without complications, With tip intact and See Notes
--- NOTE | 2023-07-16 11:48 | Obstetrical Progress Note ---
Date of Service July 16, 2023 Subjective Ambulation: ambulating normally Voiding: no voiding problems Passing Gas:: Yes Diet Tolerance:: regular diet Lochia:: Small Feeding Type:: breast feeding Current Pain Level(1-10): 0 doing well. plans for d/c in AM Physical Exam Constitutional WD/WN, vitals as above Gastrointestinal (Abdomen) Inspection/Auscultation: abdomen normal to inspection fundus firm below U. abdomen soft and non-tender Musculoskeletal Extremities: extremities normal to inspection Skin no rashes, warm and dry Neurologic patellar DTR's 2+ bilat, sensation intact Psychiatric A+Ox3, euthymic affect Results & Data Vital Signs (Past 12 Hours) Vital Signs Temp Pulse Pulse Pulse Resp BP BP 07/16/23 08:20 36.7 C 95 H 18 127/65 07/16/23 02:50 36.6 C 90 18 116/74 07/16/23 02:17 36.8 C 18 07/16/23 02:17 101 H 112/60 07/16/23 02:02 85 112/61 07/16/23 01:47 99 H 116/64 07/16/23 01:33 18 07/16/23 01:33 101 H 116/69 07/16/23 01:03 18 07/16/23 01:03 93 H 121/67 07/16/23 00:47 96 H 106/59 L 07/16/23 00:32 18 07/16/23 00:32 93 H 119/70 07/16/23 00:17 18 07/16/23 00:17 109 H 117/69 07/16/23 00:02 18 07/16/23 00:02 100 H 126/66 07/15/23 23:49 111 H 07/15/23 23:47 18 07/15/23 23:47 95 H 119/64 Pulse Ox O2 Del Method 07/16/23 08:20 Room Air 07/16/23 02:50 97 Room Air 07/16/23 02:17 07/16/23 02:17 07/16/23 02:02 07/16/23 01:47 07/16/23 01:33 07/16/23 01:33 07/16/23 01:03 07/16/23 01:03 07/16/23 00:47 07/16/23 00:32 07/16/23 00:32 07/16/23 00:17 07/16/23 00:17 07/16/23 00:02 07/16/23 00:02 07/15/23 23:49 97 07/15/23 23:47 07/15/23 23:47 Laboratory Results Laboratory Results - last 48 hr 07/15/23 07/16/23 09:41 07:11 WBC 11.02 H 15.46 H RBC 4.35 4.36 Hgb 12.5 12.4 Hct 36.0 L 36.3 L MCV 82.8 83.3 MCH 28.7 28.4 MCHC 34.7 34.2 RDW Std Deviation 41.6 41.1 RDW Coeff of Vikas 13.8 13.6 Plt Count 223 219 MPV 10.6 10.4 Blood Type B Positive Antibody Screen NEGATIVE
[2023-07-16] MEDS: bisacodyL 5 MG TABEC PO SCH (19:58)
[2023-07-17] MEDS ORDERED: bisacodyL 10 MG SUPP PR PRN
[2023-07-17 06:29] LABS: Hematocrit (blood only) 35.4 % (37.0-47.0); Hemoglobin 12.2 g/dl (12.0-16.0)
--- NOTE | 2023-07-17 10:04 | Obstetrical Progress Note ---
Date of Service July 17, 2023 Subjective Ambulation: ambulating normally Voiding: no voiding problems Passing Gas:: Yes Diet Tolerance:: regular diet Lochia:: Small Feeding Type:: bottle feeding Current Pain Level(1-10): 0 doing well. plans to go home today Physical Exam Constitutional WD/WN, vitals as above Musculoskeletal Extremities: extremities normal to inspection Skin no rashes, warm and dry Neurologic patellar DTR's 2+ bilat, sensation intact Psychiatric A+Ox3, euthymic affect Genitourinary no vaginal lesions, no adnexal mass Results & Data Vital Signs (Past 12 Hours) Vital Signs Temp Pulse Resp BP Pulse Ox O2 Del Method 07/17/23 07:38 36.4 C L 96 H 18 133/76 98 Room Air 07/16/23 23:20 36.4 C L 90 18 109/69 96 Room Air Laboratory Results Laboratory Results - last 72 hr 07/15/23 07/16/23 07/17/23 09:41 07:11 06:02 WBC 11.02 H 15.46 H RBC 4.35 4.36 Hgb 12.5 12.4 12.2 Hct 36.0 L 36.3 L 35.4 L MCV 82.8 83.3 MCH 28.7 28.4 MCHC 34.7 34.2 RDW Std Deviation 41.6 41.1 RDW Coeff of Vikas 13.8 13.6 Plt Count 223 219 MPV 10.6 10.4 Blood Type B Positive Antibody Screen NEGATIVE
== END 2023-07-17 13:00 | disposition home or self-care (01) | DRG 807 ==
LOC: 4S1 07:48 → 4E2 07-16 02:46